=== PATIENT | male | born 1940 | race Caucasian/White ===

== ENCOUNTER → 2017-03-26 | Outpatient (CLI) | payer MEDICARE, OTHER ==
--- NOTE | 2017-03-26 14:43 | REP ---
Chest two views HISTORY: COPD Comparison: 07/31/2016 The lungs are clear. The heart is normal in size. The pulmonary vasculature is normal in appearance. There is an old compression fracture of the T12 vertebral body with mild height loss. IMPRESSION: No acute disease. Signed by Isidoro Matute MD 03/26/2017 02:34 P
--- NOTE | 2017-03-26 15:21 | REP ---
SINUSES, FIVE VIEWS: HISTORY: COPD. Minimal mucosal thickening is present in the right maxillary sinus. The remaining sinuses are clear. There is no fracture or bone lesion. IMPRESSION: Minimal right maxillary sinus mucosal thickening. Signed by Isidoro Matute MD 03/26/2017 03:24 P
== END ==
LOC: M RAD 14:05
PROVIDERS: ATTEND Family Medicine
DX: J32.9 Chronic sinusitis, unspecified (principal); J44.9 Chronic obstructive pulmonary disease, unspecified

== ENCOUNTER → 2017-09-25 | Outpatient (CLI) | payer MEDICARE, OTHER ==
[2017-09-25 13:03] LABS: MEAN CORPUSCULAR HEMOGLOBIN 30.8 pg (27.0-33.0); MEAN CORPUSCULAR HGB CONC 32.4 g/dl (32.0-36.5); MEAN CORPUSCULAR VOLUME 94.8 fl (80.0-96.0); PLATELET COUNT, AUTOMATED 276 10^3/uL (150-450)
[2017-09-25 13:50] LABS: ALBUMIN 3.5 GM/DL (3.2-5.2); ALBUMIN/GLOBULIN RATIO 1.09 (1.00-1.93); ALKALINE PHOSPHATASE 92 U/L (45-117); ALT/SGPT 18 U/L (12-78); ANION GAP 8 MEQ/L (8-16); AST/SGOT 15 U/L (7-37); BILIRUBIN,TOTAL 0.6 MG/DL (0.2-1.0); BLOOD UREA NITROGEN 13 MG/DL (7-18); CALCIUM LEVEL 8.8 MG/DL (8.8-10.2); CARBON DIOXIDE LEVEL 29 MEQ/L (21-32); CHLORIDE LEVEL 106 MEQ/L (98-107); CHOLESTEROL LEVEL 215 MG/DL (<200); CREATININE FOR GFR 0.75 MG/DL (0.70-1.30); GLOMERULAR FILTRATION RATE > 60.0 (>42); GLUCOSE, FASTING 95 MG/DL (83-110); POTASSIUM SERUM 4.1 MEQ/L (3.5-5.1); SODIUM LEVEL 143 MEQ/L (136-145); TOTAL PROTEIN 6.7 GM/DL (6.4-8.2); TRIGLYCERIDES LEVEL 132 MG/DL (<150)
--- NOTE | 2017-09-25 15:20 | REP ---
Chest two views HISTORY: COPD Comparison: 03/26/2017 The lungs are clear. The heart is normal in size. The pulmonary vasculature is normal in appearance. There is an old compression fracture of the T12 vertebral body. IMPRESSION: No acute disease. Signed by Isidoro Matute MD 09/25/2017 03:11 P
--- NOTE | 2017-09-25 16:58 | ECGEPIP ---
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 No 1st degree AV block compared with 07/31/2016. Electronically Signed On 09-25-2017 16:57:49 EST by Ray Mayes
== END ==
LOC: M LAB 12:38
PROVIDERS: ATTEND Family Medicine
DX: J44.9 Chronic obstructive pulmonary disease, unspecified (principal); R53.83 Other fatigue; N40.0 Benign prostatic hyperplasia without lower urinary tract symptoms; Z79.899 Other long term (current) drug therapy

== ENCOUNTER → 2018-07-06 | Outpatient (REF) | payer MEDICARE, OTHER | LOC: M LAB REF 17:36 | DX: B07.9 Viral wart, unspecified (principal) | CPT/HCPCS: 88305 ==

== ENCOUNTER → 2018-09-02 | Outpatient (CLI) | payer MEDICARE, OTHER | LOC: M RAD 13:39 | DX: I65.23 Occlusion and stenosis of bilateral carotid arteries (principal) | CPT/HCPCS: 93880 ==

== ENCOUNTER → 2018-11-25 | Outpatient (CLI) | payer MEDICARE, OTHER ==
--- NOTE | 2018-11-25 12:48 | REP ---
Chest two views HISTORY: COPD Comparison: 09/25/2017 The lungs are clear. The heart is normal in size. The pulmonary vasculature is normal in appearance. There is an old compression fracture of the T12 vertebral body. IMPRESSION: No acute disease. Electronically Signed by Isidoro Matute MD 11/25/2018 12:40 P
[2018-11-25 13:00] LABS: HEMATOCRIT 43.1 % (42.0-52.0); HEMOGLOBIN 14.1 g/dl (13.5-17.5); MEAN CORPUSCULAR HEMOGLOBIN 31.7 pg (27.0-33.0); MEAN CORPUSCULAR HGB CONC 32.7 g/dl (32.0-36.5); MEAN CORPUSCULAR VOLUME 96.9 fl (80.0-96.0); PLATELET COUNT, AUTOMATED 221 10^3/uL (150-450); RED BLOOD COUNT 4.45 10^6/uL (4.30-6.10); WHITE BLOOD COUNT 6.1 10^3/uL (4.0-10.0)
[2018-11-25 13:29] LABS: ALBUMIN 3.6 GM/DL (3.2-5.2); ALT/SGPT 29 U/L (12-78); BILIRUBIN,TOTAL 0.4 MG/DL (0.2-1.0); BLOOD UREA NITROGEN 17 MG/DL (7-18); CALCIUM LEVEL 8.6 MG/DL (8.8-10.2); CARBON DIOXIDE LEVEL 29 MEQ/L (21-32); CHLORIDE LEVEL 104 MEQ/L (98-107); CHOLESTEROL LEVEL 211 MG/DL (<200); GLOMERULAR FILTRATION RATE > 60.0 (>42); GLUCOSE, FASTING 89 MG/DL (70-100); HDL CHOLESTEROL 50 MG/DL (>40); LDL CHOLESTEROL 141 MG/DL (<100); NON-HDL-C 161 MG/DL; POTASSIUM SERUM 4.5 MEQ/L (3.5-5.1); PROSTATIC SPECIFIC AG MONITOR 0.38 NG/ML (< 4.00); SODIUM LEVEL 139 MEQ/L (136-145); TESTOSTERONE 500 NG/DL (241-827); TOTAL PROTEIN 6.5 GM/DL (6.4-8.2); TRIGLYCERIDES LEVEL 100 MG/DL (<150)
--- NOTE | 2018-11-26 08:39 | ECGEPIP ---
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
== END ==
LOC: M LAB 11:42
PROVIDERS: ATTEND Family Medicine
DX: J44.9 Chronic obstructive pulmonary disease, unspecified (principal); R53.83 Other fatigue; E03.9 Hypothyroidism, unspecified

== ENCOUNTER → 2019-02-17 | Outpatient (CLI) | payer MEDICARE, OTHER ==
--- NOTE | 2019-02-17 19:22 | REP ---
HISTORY: Followup. Less than 50% stenosis of the right internal carotid artery and 60to 79% stenosis of the left internal carotid artery. Once again, there is echogenic material seen along the carotid arterial castillo which appears to be essentially unchanged from the prior exam. Right Left CCA systolic 84.5 cm/s 65.0 cm/s CCA diastolic 9.8 cm/s 15.3 cm/s ICA systolic 67.7 cm/s 123.1 cm/s ICA diastolic 19.8 cm/s 30.5 cm/s ICA/CCA ratio 0.8 1.9 Analysis of the spectral tracings shows left internal carotid arterial spectral broadening. IMPRESSION: No significant change from the prior exam. 60 to 79% stenosis of the left internal carotid artery and less than 50% stenosis of the right internal carotid artery according to the NASCET consensus criteria. Electronically Signed by Modesto Cruz DO 02/17/2019 07:54 P
== END ==
LOC: M RAD 17:18
PROVIDERS: ATTEND Surgery Vascular Surgery
DX: I65.23 Occlusion and stenosis of bilateral carotid arteries (principal)

== ENCOUNTER 2019-09-21 10:21 | Day surgery (SDC) | payer MEDICARE, OTHER ==
[~2019-09-21] VITALS: Ht 177.8 cm; Wt 78.0 kg
[~2019-09-21 10:21] MED LIST: DOXA1TAB42 PO; DUTA1CAP PO; SIMV20TA22 PO
[2019-09-21] MEDS ORDERED: NS 1,000 ML IV ONE (10:45)
[2019-09-21] MEDS ORDERED: LIDOCAINE 2% INJ 100 MG/5 ML SDV (FOR ANES.) As Ordered ONE (11:01)
[2019-09-21] MEDS ORDERED: PROPOFOL 200 MG/20 ML VIAL As Ordered ONE (11:01)
[2019-09-21] MEDS ORDERED: hydrALAZINE INJ 20 MG/ML VIAL As Ordered ONE (11:44)
--- NOTE | 2019-09-21 11:53 | ROOR ---
Patient Name: Cody Quinn Procedure Date: 09/21/2019 11:28 AM Date of : 1940 Age: 78 Room: [facility] Gender: Male Note Status: Finalized Procedure: Total Colonoscopy to Cecum + Cold Snare Polypectomy Indications: Screening for colorectal malignant neoplasm, Last colonoscopy: 2008 Providers: Alex Pierce MD Referring MD: SANDOVAL PETTY MD Requesting Provider: Medicines: Monitored Anesthesia Care Complications: No immediate complications. Procedure: Pre-Anesthesia Assessment: - The heart rate, respiratory rate, oxygen saturations, blood pressure, adequacy of pulmonary ventilation, and response to care were monitored throughout the procedure. The Colonoscope was introduced through the anus and advanced to the cecum, identified by appendiceal orifice and ileocecal valve. The colonoscopy was performed without difficulty. The patient tolerated the procedure well. The quality of the bowel preparation was excellent. Findings: The perianal and digital rectal examinations were normal. Non-bleeding internal hemorrhoids were found during retroflexion. The hemorrhoids were small and Grade I (internal hemorrhoids that do not prolapse). Multiple small and large-mouthed diverticula were found in the recto-sigmoid colon, sigmoid colon and descending colon. Two sessile polyps were found in the transverse colon. The polyps were small in size. These polyps were removed with a cold snare. Resection and retrieval were complete. The exam was otherwise without abnormality on direct and retroflexion views. Impression: - Non-bleeding internal hemorrhoids. - Diverticulosis in the recto-sigmoid colon, in the sigmoid colon and in the descending colon. - Two small polyps in the transverse colon, removed with a cold snare. Resected and retrieved. - The examination was otherwise normal on direct and retroflexion views. - The exam was otherwise normal to the cecum. Recommendation: - Patient has a contact number available for emergencies. The signs and symptoms of potential delayed complications were discussed with the patient. Return to normal activities tomorrow. Written discharge instructions were provided to the patient. - High fiber diet. - Discharge patient to home. - Continue present medications. - Await pathology results. - Telephone GI clinic for pathology results in 1 week. - Repeat colonoscopy for symptoms only. - Return to referring physician. - The findings and recommendations were discussed with the patient's family. Alex Pierce MD Alex Pierce MD 09/21/2019 11:53:06 AM Electronically signed by Alex Pierce MD Number of Addenda: 0 Note Initiated On: 09/21/2019 11:28 AM Estimated Blood Loss: Estimated blood loss: none.
[2019-09-21 12:15] VITALS: BP 144/83
== END 2019-09-21 12:28 | disposition home or self-care (01) ==
LOC: M OPP 10:21
PROVIDERS: ATTEND Internal Medicine Gastroenterology
DX: Z12.11 Encounter for screening for malignant neoplasm of colon (principal); K64.0 First degree hemorrhoids; D12.3 Benign neoplasm of transverse colon; K57.30 Diverticulosis of large intestine without perforation or abscess without bleeding; Z79.899 Other long term (current) drug therapy; Z87.891 Personal history of nicotine dependence

== ENCOUNTER → 2019-09-28 | Outpatient (CLI) | payer MEDICARE, OTHER ==
[2019-09-28 11:07] LABS: HEMATOCRIT 41.9 % (42.0-52.0); HEMOGLOBIN 13.4 g/dl (13.5-17.5); MEAN CORPUSCULAR HEMOGLOBIN 31.5 pg (27.0-33.0); MEAN CORPUSCULAR VOLUME 98.6 fl (80.0-96.0); RED BLOOD COUNT 4.25 10^6/uL (4.30-6.10); WHITE BLOOD COUNT 6.1 10^3/uL (4.0-10.0)
[2019-09-28 11:26] LABS: PLATELET COUNT, AUTOMATED 87 10^3/uL (150-450)
[2019-09-28 11:37] LABS: ALBUMIN 3.3 GM/DL (3.2-5.2); ALT/SGPT 22 U/L (12-78); BILIRUBIN,TOTAL 0.4 MG/DL (0.2-1.0); BLOOD UREA NITROGEN 25 MG/DL (7-18); CALCIUM LEVEL 8.3 MG/DL (8.8-10.2); CARBON DIOXIDE LEVEL 30 MEQ/L (21-32); CHLORIDE LEVEL 110 MEQ/L (98-107); CHOLESTEROL LEVEL 173 MG/DL (<200); CHOLESTEROL RISK RATIO 3.203 (<5); CREATININE FOR GFR 1.06 MG/DL (0.70-1.30); GLOMERULAR FILTRATION RATE > 60.0 (>42); GLUCOSE, FASTING 89 MG/DL (70-100); HDL CHOLESTEROL 54 MG/DL (>40); LDL CHOLESTEROL 105 MG/DL (<100); NON-HDL-C 119 MG/DL; POTASSIUM SERUM 4.3 MEQ/L (3.5-5.1); SODIUM LEVEL 143 MEQ/L (136-145); TOTAL PROTEIN 6.6 GM/DL (6.4-8.2); TRIGLYCERIDES LEVEL 70 MG/DL (<150)
[2019-09-28 11:39] LABS: TESTOSTERONE 499 NG/DL (241-827); TOTAL 25(OH) VITAMIN D 42.3 NG/ML (30.0-100.0)
== END ==
LOC: M LAB 10:30
PROVIDERS: ATTEND Family Medicine
DX: I10 Essential (primary) hypertension (principal); E03.9 Hypothyroidism, unspecified; N40.0 Benign prostatic hyperplasia without lower urinary tract symptoms; E29.1 Testicular hypofunction; Z79.899 Other long term (current) drug therapy
CPT/HCPCS: 36415; 80053; 80061; 82306; 84403; 84443; 85027; 85049; 85055; G0103

== ENCOUNTER → 2019-10-25 | Outpatient (CLI) | payer MEDICARE, OTHER ==
--- NOTE | 2019-10-25 12:00 | REP ---
DUPLEX CAROTID SONOGRAPHY: HISTORY: Stenosis. Comparison is made with February 17, 2019 prior study. FINDINGS: Antegrade flow was observed in both vertebral arteries. RIGHT CAROTID: The right common carotid artery shows diffuse intimal thickening. There is mild soft plaquing in the bulb and proximal ICA on the right side. Color flow and spectral Doppler interrogation are unremarkable on the right and velocities are unchanged. Right Carotid Velocity Chart: PSV EDV Right CCA 64 cm/s Right ICA 72 cm/s 25 cm/s Right ECA 75 cm/s Right ICA/CCA ratio normal 1.1. IMPRESSION: Less than 50% category narrowing in the right ICA. Velocities are unchanged. LEFT CAROTID: The left common carotid artery shows diffuse intimal thickening and some soft plaquing. There is moderate mixed plaquing in the bulb and proximal ICA and proximal ECA on the left side on two-dimensional scanning. Significantly elevated systolic velocity is again observed in the external carotid artery on the left. Normal ICA velocities are observed. Velocity Chart Left Carotid: PSV EDV Left CCA 82 cm/s Left ICA 97 cm/s 32 cm/s Left ECA 322 cm/s Left ICA/CCA ratio 1.22. IMPRESSION: Significant stenotic flow velocities are again observed in the external carotid artery unchanged. Less of 50% category narrowing in the ICA. Electronically Signed by Leon Cesar MD 10/25/2019 01:10 P
== END ==
LOC: M RAD 10:43
PROVIDERS: ATTEND Physician Assistant
DX: I65.23 Occlusion and stenosis of bilateral carotid arteries (principal)

== ENCOUNTER → 2019-12-27 | Outpatient (CLI) | payer MEDICARE, OTHER ==
[~2019-12-27] MED LIST changes: +ASPI81TA85 PO; +DEXA4TA PO; -DUTA1CAP PO; +DUTA1CAP2 PO; +FISH1000 PO; +OCUVTAB4 PO; +ODOR100T3 PO
--- NOTE | 2019-12-27 09:52 | REP ---
Splenic ultrasound in a patient with thrombocytopenia for splenomegaly: The spleen measures 8.5 x 2.5 x 7.4 cm for a splenic index of 157 and is normal size. There are no splenic masses or cysts. Left kidney: Left kidney measures 11.6 x 420 x 6 point centimeters and is normal size. The left renal cortex is hyperechogenic. This is compatible with medical renal disease. There is mild dilatation of the left renal pelvis, nonspecific, mild hydronephrosis versus artifact. There is increased renal sinus fat compatible with mild cortical thinning. There is no left upper quadrant abdominal ascites. Impression: The spleen is normal size. No splenic masses or cysts. Left kidney demonstrates increased cortical echogenicity compatible with medical renal disease. Probable mild left renal cortical thinning. No left renal solid or cystic mass on the right. Questionable mild left renal hydronephrosis versus artifact, possibly from a full bladder. Electronically Signed by Josh Farris MD 12/27/2019 09:43 A
== END ==
LOC: M RAD 07:50
PROVIDERS: ATTEND Internal Medicine Medical Oncology
DX: D69.6 Thrombocytopenia, unspecified (principal)

== ENCOUNTER 2020-02-01 09:54 | Emergency (ER) | payer MEDICARE, OTHER ==
[~2020-02-01] VITALS: Ht 177.8 cm; Wt 79.4 kg
[~2020-02-01 09:54] MED LIST changes: +HYDR12.55 PO
[2020-02-01 09:55] VITALS: BP 160/80
[2020-02-01] MEDS ORDERED: BACITRACIN OINTMENT 30GM TUBE TOP ONE (10:15)
== END 2020-02-01 10:41 | disposition home or self-care (01) ==
LOC: M ED 09:54
DX: S50.812A Abrasion of left forearm, initial encounter (principal); W54.8XXA Other contact with dog, initial encounter; Y92.018 Other place in single-family (private) house as the place of occurrence of the external cause; I10 Essential (primary) hypertension; Z79.899 Other long term (current) drug therapy

== ENCOUNTER → 2020-03-02 | Outpatient (CLI) | payer MEDICARE, OTHER ==
--- NOTE | 2020-03-02 14:49 | REP ---
Bilateral lower extremity arterial Doppler ultrasound: History: Atherosclerosis. No comparison study. Findings: Ankle brachial indices are measured at 0.5 on the right and 0.7 on the left. There is fairly heavy diffuse plaquing is seen. Monophasic waveforms are noted in the right lower extremity at and distal to the mid superficial femoral artery and monophasic waveforms are noted in the left lower extremity at and distal to the distal superficial femoral artery. There is evidence of a mild stenosis at the mid SFA on the right. The left proximal and mid SFA are occluded. Right lower extremity arterial Doppler velocity chart: Right CF A PSV 166 cm/S Proximal SFA 42 Mid SFA 95 Distal SFA 124 Popliteal 51 Proximal AT A 24 Tibioperoneal trunk 52 Proximal COUNSELOR AID 50 Distal COUNSELOR AID 58 Distal AT A 27 Left lower extremity arterial Doppler velocity chart: Left CF A PSV 127 cm/S Profunda 180 Proximal SFA occluded Mid SFA occluded Distal SFA 91/94 Popliteal 70 eight Proximal AT A 83 Tibioperoneal trunk 72 Proximal COUNSELOR AID 76 Distal COUNSELOR AID 34 Distal AT A 60 Electronically Signed by Leon Cesar MD 03/02/2020 02:40 P
== END ==
LOC: M RAD 12:34
PROVIDERS: ATTEND Physician Assistant
DX: I70.213 Atherosclerosis of native arteries of extremities with intermittent claudication, bilateral legs (principal)

== ENCOUNTER → 2020-03-13 | Outpatient (CLI) | payer MEDICARE, OTHER ==
[2020-03-13 15:53] LABS: BASO # 0.1 10^3/uL (0.0-0.2); BASO % 1.1 % (0.0-1.0); EOS # 0.1 10^3/uL (0.0-0.5); EOS % 1.7 % (0.0-3.0); HEMATOCRIT 39.4 % (42.0-52.0); HEMOGLOBIN 12.8 g/dl (13.5-17.5); LYMPH # 1.1 10^3/uL (1.5-5.0); LYMPH % 17.1 % (24.0-44.0); MEAN CORPUSCULAR HEMOGLOBIN 30.5 pg (27.0-33.0); MEAN CORPUSCULAR HGB CONC 32.5 g/dl (32.0-36.5); MONO # 0.9 10^3/uL (0.0-0.8); MONO % 13.6 % (0.0-5.0); NEUTROPHILS # 4.3 10^3/uL (1.5-8.5); NEUTROPHILS % 66.2 % (36.0-66.0); RED BLOOD COUNT 4.19 10^6/uL (4.30-6.10); WHITE BLOOD COUNT 6.5 10^3/uL (4.0-10.0)
[2020-03-13 15:55] LABS: PLATELET COUNT, AUTOMATED 42 10^3/uL (150-450)
== END ==
LOC: M PLALAB 14:04
PROVIDERS: ATTEND Internal Medicine Medical Oncology
DX: D69.3 Immune thrombocytopenic purpura (principal)

== ENCOUNTER → 2020-04-16 | Outpatient (CLI) | payer MEDICARE, OTHER ==
[~2020-04-16] MED LIST changes: +VITAD1000T PO
[2020-04-16 16:03] LABS: BASO # 0.1 10^3/uL (0.0-0.2); EOS # 0.1 10^3/uL (0.0-0.5); EOS % 1.9 % (0.0-3.0); HEMATOCRIT 43.1 % (42.0-52.0); HEMOGLOBIN 13.9 g/dl (13.5-17.5); LYMPH # 1.1 10^3/uL (1.5-5.0); LYMPH % 18.5 % (24.0-44.0); MEAN CORPUSCULAR HGB CONC 32.3 g/dl (32.0-36.5); MEAN CORPUSCULAR VOLUME 96.2 fl (80.0-96.0); MONO # 0.8 10^3/uL (0.0-0.8); MONO % 13.6 % (0.0-5.0); NEUTROPHILS # 3.7 10^3/uL (1.5-8.5); NEUTROPHILS % 64.7 % (36.0-66.0); RED BLOOD COUNT 4.48 10^6/uL (4.30-6.10); WHITE BLOOD COUNT 5.7 10^3/uL (4.0-10.0)
[2020-04-16 16:13] LABS: PLATELET COUNT, AUTOMATED 45 10^3/uL (150-450)
== END ==
LOC: M PLALAB 13:16
PROVIDERS: ATTEND Internal Medicine Medical Oncology
DX: D69.3 Immune thrombocytopenic purpura (principal)

== ENCOUNTER → 2020-04-19 | Outpatient (CLI) | payer MEDICARE, OTHER ==
--- NOTE | 2020-04-19 13:39 | REP ---
Clinical: History of stenosis and right endarterectomy. Technique: Momin scale and color Doppler evaluation using linear high frequency transducer Findings: Two-dimensional momin scale and color images demonstrate moderate mixed atheromatous plaquing bilaterally (left greater than right). Turbulent flow suggested at the left carotid bulb. Doppler wave patterns demonstrate increased spectral broadening of the left internal and external carotid arteries. RIGHT (cm/s) LEFT (cm/s) ICA peak systolic velocity 84.1 126.6 ICA diastolic velocity 28.3 16.7 ECA peak systolic velocity 70.2 348.7 CCA peak systolic velocity 71.5 58.4 ICA/CCA ratio 1.18 2.17 Impression: 1. Increased velocities through the left external iliac artery suggesting underlying stenosis. 2. Atherosclerotic changes and increased velocities along with increased ICA/cc ratio suggesting 50-69% narrowing through the left internal carotid artery. 3. Narrowing of the right internal carotid artery less than 50% range. Electronically Signed by Jay Jay Monreal MD 04/19/2020 01:31 P
== END ==
LOC: M RAD 12:07
PROVIDERS: ATTEND Physician Assistant
DX: I65.23 Occlusion and stenosis of bilateral carotid arteries (principal)

== ENCOUNTER → 2020-06-08 | Outpatient (CLI) | payer MEDICARE, OTHER ==
[~2020-06-08] MED LIST changes: +AMLO1TAB25; -ASPI81TA85 PO; +ASPI81TA86 PO; +D31000TA2 PO; +DOXA1TAB41; +HYDR100T; +LABE300T2; -VITAD1000T PO
[2020-06-08 16:36] LABS: BASO # 0.1 10^3/uL (0.0-0.2); BASO % 1.1 % (0.0-1.0); EOS # 0.2 10^3/uL (0.0-0.5); HEMATOCRIT 42.5 % (42.0-52.0); HEMOGLOBIN 13.6 g/dl (13.5-17.5); LYMPH # 1.1 10^3/uL (1.5-5.0); LYMPH % 19.7 % (24.0-44.0); MEAN CORPUSCULAR HEMOGLOBIN 30.7 pg (27.0-33.0); MEAN CORPUSCULAR VOLUME 95.9 fl (80.0-96.0); MONO # 0.6 10^3/uL (0.0-0.8); MONO % 10.9 % (0.0-5.0); NEUTROPHILS # 3.5 10^3/uL (1.5-8.5); NEUTROPHILS % 65.1 % (36.0-66.0); RED BLOOD COUNT 4.43 10^6/uL (4.30-6.10); WHITE BLOOD COUNT 5.3 10^3/uL (4.0-10.0)
[2020-06-08 16:53] LABS: PLATELET COUNT, AUTOMATED 51 10^3/uL (150-450)
== END ==
LOC: M PLALAB 13:15
PROVIDERS: ATTEND Specialist
DX: D69.3 Immune thrombocytopenic purpura (principal)

== ENCOUNTER → 2020-06-18 | Outpatient (CLI) | payer MEDICARE, OTHER ==
[2020-06-18 14:23] LABS: BASO # 0.1 10^3/uL (0.0-0.2); EOS # 0.2 10^3/uL (0.0-0.5); EOS % 3.2 % (0.0-3.0); HEMATOCRIT 42.6 % (42.0-52.0); HEMOGLOBIN 13.7 g/dl (13.5-17.5); LYMPH # 1.8 10^3/uL (1.5-5.0); LYMPH % 30.2 % (24.0-44.0); MEAN CORPUSCULAR HEMOGLOBIN 30.2 pg (27.0-33.0); MEAN CORPUSCULAR HGB CONC 32.2 g/dl (32.0-36.5); MONO # 0.6 10^3/uL (0.0-0.8); MONO % 9.1 % (0.0-5.0); NEUTROPHILS # 3.4 10^3/uL (1.5-8.5); NEUTROPHILS % 56.3 % (36.0-66.0); RED BLOOD COUNT 4.53 10^6/uL (4.30-6.10)
[2020-06-18 14:26] LABS: PLATELET COUNT, AUTOMATED 67 10^3/uL (150-450)
== END ==
LOC: M PLALAB 12:32
PROVIDERS: ATTEND Specialist
DX: D69.3 Immune thrombocytopenic purpura (principal)

== ENCOUNTER → 2020-06-29 | Outpatient (CLI) | payer MEDICARE, OTHER ==
[2020-06-29 15:58] LABS: BASO # 0.1 10^3/uL (0.0-0.2); BASO % 1.3 % (0.0-1.0); EOS # 0.1 10^3/uL (0.0-0.5); EOS % 2.2 % (0.0-3.0); HEMATOCRIT 42.9 % (42.0-52.0); HEMOGLOBIN 13.8 g/dl (13.5-17.5); LYMPH # 1.4 10^3/uL (1.5-5.0); LYMPH % 24.9 % (24.0-44.0); MEAN CORPUSCULAR HGB CONC 32.2 g/dl (32.0-36.5); MEAN CORPUSCULAR VOLUME 96.4 fl (80.0-96.0); MONO # 0.6 10^3/uL (0.0-0.8); MONO % 10.1 % (0.0-5.0); NEUTROPHILS # 3.4 10^3/uL (1.5-8.5); NEUTROPHILS % 61.3 % (36.0-66.0); RED BLOOD COUNT 4.45 10^6/uL (4.30-6.10); WHITE BLOOD COUNT 5.5 10^3/uL (4.0-10.0)
[2020-06-29 16:00] LABS: PLATELET COUNT, AUTOMATED 74 10^3/uL (150-450)
== END ==
LOC: M PLALAB 12:42
PROVIDERS: ATTEND Specialist
DX: D69.3 Immune thrombocytopenic purpura (principal)

== ENCOUNTER → 2020-08-01 | Outpatient (CLI) | payer MEDICARE, OTHER ==
[~2020-08-01] MED LIST changes: -AMLO1TAB25; -DOXA1TAB41; -HYDR100T; -LABE300T2
[2020-08-01 16:20] LABS: BASO # 0.1 10^3/uL (0.0-0.2); BASO % 1.7 % (0.0-1.0); EOS # 0.2 10^3/uL (0.0-0.5); HEMATOCRIT 42.1 % (42.0-52.0); HEMOGLOBIN 13.4 g/dl (13.5-17.5); LYMPH # 1.4 10^3/uL (1.5-5.0); LYMPH % 26.4 % (24.0-44.0); MEAN CORPUSCULAR HEMOGLOBIN 30.6 pg (27.0-33.0); MEAN CORPUSCULAR HGB CONC 31.8 g/dl (32.0-36.5); MEAN CORPUSCULAR VOLUME 96.1 fl (80.0-96.0); MONO # 0.6 10^3/uL (0.0-0.8); MONO % 10.6 % (0.0-5.0); NEUTROPHILS # 3.1 10^3/uL (1.5-8.5); NEUTROPHILS % 58.1 % (36.0-66.0); RED BLOOD COUNT 4.38 10^6/uL (4.30-6.10); WHITE BLOOD COUNT 5.3 10^3/uL (4.0-10.0)
[2020-08-01 16:21] LABS: PLATELET COUNT, AUTOMATED 51 10^3/uL (150-450)
[2020-08-01 16:52] LABS: IMMUNOGLOBULIN G 629 MG/DL (681-1648); IMMUNOGLOBULIN M 42.8 MG/DL (40-230); TOTAL PROTEIN 5.8 GM/DL (6.4-8.2)
[2020-08-03 09:58] LABS: ALPHA-1-GLOBULIN % 4.6 % (2.9-4.9); ALPHA-1-GLOBULINS 0.27 GM/DL (0.17-0.41); ALPHA-2-GLOBULINS 0.59 GM/DL (0.42-0.99); ALPHA-2-GLOBULINS % 10.1 % (7.1-11.8); BETA-1-GLOBULINS 0.37 GM/DL (0.28-0.60); BETA-1-GLOBULINS % 6.3 % (4.7-7.2); BETA-2-GLOBULINS 0.32 GM/DL (0.19-0.55); BETA-2-GLOBULINS % 5.5 % (3.2-6.5); GAMMA GLOBULIN % 11.5 % (11.1-18.8); GAMMA GLOBULINS 0.67 GM/DL (0.65-1.58)
[2020-08-04 04:07] LABS: FREE KAPPA LIGHT CHAINS SERUM 16.2 mg/L (3.3-19.4); KAPPA/LAMBDA RATIO SERUM 1.25 (0.26-1.65)
== END ==
LOC: M PLALAB 13:00
PROVIDERS: ATTEND Internal Medicine Medical Oncology
DX: D69.3 Immune thrombocytopenic purpura (principal)

== ENCOUNTER → 2020-08-10 | Outpatient (CLI) | payer MEDICARE, OTHER ==
[2020-08-10 17:27] LABS: ALBUMIN 3.3 GM/DL (3.2-5.2); ALT/SGPT 21 U/L (12-78); BILIRUBIN,TOTAL 0.4 MG/DL (0.2-1.0); BLOOD UREA NITROGEN 19 MG/DL (7-18); CALCIUM LEVEL 8.6 MG/DL (8.8-10.2); CARBON DIOXIDE LEVEL 26 MEQ/L (21-32); CHLORIDE LEVEL 111 MEQ/L (98-107); CHOLESTEROL LEVEL 198 MG/DL (<200); CHOLESTEROL RISK RATIO 4.212 (<5); CREATININE FOR GFR 0.99 MG/DL (0.70-1.30); GLOMERULAR FILTRATION RATE > 60.0 (>42); GLUCOSE, FASTING 82 MG/DL (70-100); HDL CHOLESTEROL 47 MG/DL (>40); LDL CHOLESTEROL 122 MG/DL (<100); NON-HDL-C 151 MG/DL; POTASSIUM SERUM 4.1 MEQ/L (3.5-5.1); PROSTATIC SPECIFIC AG MONITOR 0.62 NG/ML (< 4.00); SODIUM LEVEL 143 MEQ/L (136-145); TESTOSTERONE 554 NG/DL (241-827); TOTAL PROTEIN 6.1 GM/DL (6.4-8.2); TRIGLYCERIDES LEVEL 143 MG/DL (<150)
== END ==
LOC: M PLALAB 13:35
PROVIDERS: ATTEND Family Medicine
DX: I10 Essential (primary) hypertension (principal); R53.83 Other fatigue; E03.9 Hypothyroidism, unspecified; R97.20 Elevated prostate specific antigen [PSA]

== ENCOUNTER 2020-08-17 17:59 | Emergency (ER) | payer MEDICARE, OTHER ==
[~2020-08-17] VITALS: Ht 177.8 cm; Wt 80.1 kg
--- NOTE | 2020-08-17 18:29 | REP ---
INDICATION: CHEST PAIN. COMPARISON: None. TECHNIQUE: Sitting AP view. FINDINGS: Monitoring electrodes are seen. The lungs are well inflated and free of infiltrate. Pleural angles are sharp. The aorta is tortuous. Heart is not enlarged. Pulmonary vasculature is not increased. IMPRESSION: No active cardiopulmonary disease seen. <Electronically signed by Dean Cesar > 08/17/20 [id number]
[2020-08-17] MEDS ORDERED: ASPIRIN 325 MG TAB PO ONE (18:30)
[2020-08-17] MEDS ORDERED: GI COCKTAIL 50ML BTL(HYOSCYAMINE/MAALOX/LIDOCAINE VISCOUS)(1:3:1) PO ONE (18:30)
[2020-08-17] MEDS ORDERED: ISOVUE-370 76% 100ML VIAL As Ordered ONE (18:30)
[2020-08-17 18:34] LABS: BASO # 0.1 10^3/uL (0.0-0.2); BASO % 0.8 % (0.0-1.0); EOS # 0.1 10^3/uL (0.0-0.5); EOS % 1.6 % (0.0-3.0); HEMATOCRIT 43.1 % (42.0-52.0); HEMOGLOBIN 13.7 g/dl (13.5-17.5); LYMPH % 24.7 % (24.0-44.0); MEAN CORPUSCULAR HEMOGLOBIN 30.6 pg (27.0-33.0); MEAN CORPUSCULAR HGB CONC 31.8 g/dl (32.0-36.5); MEAN CORPUSCULAR VOLUME 96.2 fl (80.0-96.0); MONO # 0.8 10^3/uL (0.0-0.8); MONO % 9.9 % (0.0-5.0); NEUTROPHILS % 62.7 % (36.0-66.0); RED BLOOD COUNT 4.48 10^6/uL (4.30-6.10)
[2020-08-17 18:43] LABS: PLATELET COUNT, AUTOMATED 73 10^3/uL (150-450)
[2020-08-17 18:45] LABS: INR 0.98; PARTIAL THROMBOPLASTIN TIME 25.8 SECONDS (24.2-38.5); PROTHROMBIN TIME 13.2 SECONDS (12.5-14.3)
[2020-08-17] MEDS ORDERED: MORPHINE 4 MG/ML 1ML VIAL/SYRINGE (J2270) As Ordered ONE (18:45)
[2020-08-17] MEDS ORDERED: ONDANSETRON 4MG/2ML VIAL As Ordered ONE (18:45)
[2020-08-17] MEDS ORDERED: ONDANSETRON 4MG/2ML VIAL IV ONE (18:45)
[2020-08-17] MEDS: MORPHINE 4 MG/ML 1ML VIAL/SYRINGE (J2270) IV PRN ×2 (18:49→19:11)
--- NOTE | 2020-08-17 18:55 | REPVR ---
PROCEDURE INFORMATION: Exam: CT Angiography Chest With Contrast Exam date and time: 08/17/2020 6:33 PM Age: 79 years old Clinical indication: Chest pain; Additional info: Cp R/O aneurysm TECHNIQUE: Imaging protocol: Computed tomographic angiography of the chest with intravenous contrast. 3D rendering (Not supervised by radiologist): MIP and/or 3D reconstructed images were created by the technologist. Radiation optimization: All CT scans at this facility use at least one of these dose optimization techniques: automated exposure control; mA and/or kV adjustment per patient size (includes targeted exams where dose is matched to clinical indication); or iterative reconstruction. Contrast material: ISOVUE 370; Contrast volume: 75 ml; Contrast route: INTRAVENOUS (IV); COMPARISON: ND PORTABLE CHEST X-RAY 08/17/2020 6:18 PM FINDINGS: Pulmonary arteries: Contrast density in the pulmonary arteries not optimized for detection of pulmonary emboli although no large central pulmonary emboli demonstrated. 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 False lumens begins to opacify at the level of the distal aortic arch extending inferiorly to several cm proximal to the aortic hiatus. Lungs: Small reticular opacity posterior segment right upper lobe. A lungs otherwise clear. Pleural space: Unremarkable. No pneumothorax. No pleural effusion. Heart: Unremarkable. No cardiomegaly. No pericardial effusion. Lymph nodes: Unremarkable. No enlarged lymph nodes. Bones/joints: Unremarkable. No acute fracture. Soft tissues: Unremarkable. IMPRESSION: 1. DeBakey type 3 aortic dissection. 2. Contrast density in the pulmonary arteries not optimized for detection of pulmonary emboli although no large central pulmonary emboli demonstrated. 3. No significant pulmonary parenchymal abnormality. THIS REPORT CONTAINS FINDINGS THAT MAY BE CRITICAL TO PATIENT CARE. The findings were verbally communicated via telephone conference with MIGUELANGEL BUTLER at 6:54 PM EDT on 08/17/2020. The findings were acknowledged and understood. Electronically signed by: Chance Bowles On 08/17/2020 18:55:02 PM
[2020-08-17] MEDS ORDERED: NITROPRUSSIDE SODIUM 50 MG in IV 1 EA IV SCH (19:00)
[2020-08-17 19:03] LABS: ALBUMIN 3.6 GM/DL (3.2-5.2); BILIRUBIN,DIRECT 0.1 MG/DL (0.0-0.2); BILIRUBIN,TOTAL 0.4 MG/DL (0.2-1.0); FREE T4 0.91 NG/DL (0.76-1.46); THYROID STIMULATING HORMONE 1.48 uIU/ML (0.358-3.740); TOTAL PROTEIN 6.5 GM/DL (6.4-8.2)
[2020-08-17 19:10] VITALS: BP 250/100
[2020-08-17 19:45] VITALS: BP 122/76
--- NOTE | 2020-08-18 07:54 | ECGEPIP ---
[facility] - ED Test Date: 2020-08-17 Pat Name: ANABEL RANDALL Department: Room: - Gender: Male Pick Up: JRobbie : 1940 Requested By: Elaine Galvan Order Number: [id number] Reading MD: Tristan Galvez Measurements Intervals [place] Rate: 55 P: -4 MD: 225 QRS: -3 QRSD: 90 T: 74 QT: 441 QTc: 424 Interpretive Statements SINUS BRADYCARDIA WITH FIRST DEGREE AV BLOCK POOR R WAVE PROGRESSION NSTTW ABNORMALITY(S) SIMILAR TO 11/25/18 Electronically Signed on 08-18-2020 7:54:21 EDT by Tristan Galvez
== END 2020-08-17 19:46 | disposition short-term general hospital (02) ==
LOC: M ED 17:59
DX: I71.2 Thoracic aortic aneurysm, without rupture (principal); I71.01 Dissection of thoracic aorta; I10 Essential (primary) hypertension; E78.5 Hyperlipidemia, unspecified; Z79.899 Other long term (current) drug therapy
CPT/HCPCS: 71045; 71275; 80047; 80076; 83605; 83690; 84439; 84443; 84484; 85025; 85049; 85055; 85610; 85730; 86850; 86900; 86901; 93005; 93041; 94760; 96374; 96375; 99291; J2270; J2405; Q9967

== ENCOUNTER 2020-08-31 17:03 | Emergency (ER) | payer MEDICARE, OTHER ==
[~2020-08-31] VITALS: Ht 177.8 cm; Wt 77.3 kg
[2020-08-31 17:44] LABS: ABG BASE EXCESS -0.1 (-2.0-2.0); ABG HCO3 19.2 MEQ/L (22.0-26.0); ABG O2 SATURATION 98.2 % (95.0-99.0); ABG PARTIAL PRESSURE O2 92.6 mmHg (75.0-100.0); ABG STANDARD HCO3 24.5 MEQ/L (22.0-26.0); ABG TOTAL CO2 19.7 MEQ/L (23.0-31.0); ABG pH (ARTERIAL) 7.653 UNITS (7.350-7.450)
[2020-08-31 17:45] LABS: ABG PARTIAL PRESSURE CO2 17.7 mmHg (35.0-45.0)
[2020-08-31 18:11] LABS: BASO # 0.1 10^3/uL (0.0-0.2); BASO % 0.5 % (0.0-1.0); EOS # 0.4 10^3/uL (0.0-0.5); EOS % 3.3 % (0.0-3.0); HEMATOCRIT 28.5 % (42.0-52.0); HEMOGLOBIN 9.4 g/dl (13.5-17.5); LYMPH # 1.1 10^3/uL (1.5-5.0); LYMPH % 9.8 % (24.0-44.0); MEAN CORPUSCULAR HEMOGLOBIN 30.8 pg (27.0-33.0); MEAN CORPUSCULAR VOLUME 93.4 fl (80.0-96.0); MONO # 0.7 10^3/uL (0.0-0.8); MONO % 6.7 % (0.0-5.0); NEUTROPHILS # 8.5 10^3/uL (1.5-8.5); NEUTROPHILS % 77.9 % (36.0-66.0); PLATELET COUNT, AUTOMATED 387 10^3/uL (150-450); RED BLOOD COUNT 3.05 10^6/uL (4.30-6.10); WHITE BLOOD COUNT 10.9 10^3/uL (4.0-10.0)
[2020-08-31 18:42] LABS: ALBUMIN 2.5 GM/DL (3.2-5.2); ALT/SGPT 79 U/L (12-78); BILIRUBIN,DIRECT 0.2 MG/DL (0.0-0.2); BILIRUBIN,TOTAL 0.5 MG/DL (0.2-1.0); BLOOD UREA NITROGEN 34 MG/DL (7-18); CALCIUM LEVEL 8.7 MG/DL (8.8-10.2); CARBON DIOXIDE LEVEL 22 MEQ/L (21-32); CHLORIDE LEVEL 107 MEQ/L (98-107); CK-MB VALUE MASS < 1.0 NG/ML (<3.6); CPK CREATINE PHOSPHOKINASE 58 U/L (39-308); CREATININE FOR GFR 1.24 MG/DL (0.70-1.30); GLOMERULAR FILTRATION RATE > 60.0 (>42); GLUCOSE, FASTING 98 MG/DL (70-100); MB/CK RELATIVE INDEX 1.72 (< OR =4); NT-PRO BNP 1425 PG/ML (<450); POTASSIUM SERUM 4.5 MEQ/L (3.5-5.1); SODIUM LEVEL 139 MEQ/L (136-145); TOTAL PROTEIN 5.8 GM/DL (6.4-8.2); TROPONIN I 0.04 NG/ML (< 0.10)
--- NOTE | 2020-08-31 18:57 | REP ---
INDICATION: DYSPNEA/COUGH. COMPARISON: 08/17/2020 FINDINGS: The technique utilized in obtaining the radiograph has magnified the cardiac silhouette and accentuated the interstitial markings. The superior mediastinal structures are midline. The cardiac silhouette is unremarkable in size, shape, and position. The diaphragmatic surfaces of the lungs are regular, and the costophrenic angles are clear. The pulmonary mustafa are clear. The imaged osseous structures are intact. IMPRESSION: There is no acute cardiopulmonary disease. No significant change from the prior exam. <Electronically signed by Modesto Cruz > 08/31/20 [id number]
[2020-08-31] MEDS ORDERED: HYDR100T (19:05)
[2020-08-31] MEDS ORDERED: DOXA1TAB41 (19:08)
[2020-08-31] MEDS ORDERED: LABE300T2 (19:08)
[2020-08-31] MEDS ORDERED: AMLO1TAB25 (19:08)
--- NOTE | 2020-08-31 19:30 | ECGEPIP ---
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
[2020-08-31] MEDS ORDERED: LABETALOL 100MG/20ML VIAL IV STA (19:54)
[2020-08-31 20:09] VITALS: BP 170/77
[2020-08-31 21:31] VITALS: BP 163/73
== END 2020-08-31 21:37 | disposition short-term general hospital (02) ==
LOC: M ED 17:03
DX: R06.02 Shortness of breath (principal); D64.9 Anemia, unspecified; R94.31 Abnormal electrocardiogram [ECG] [EKG]; I10 Essential (primary) hypertension; I71.00 Dissection of unspecified site of aorta; G47.33 Obstructive sleep apnea (adult) (pediatric); N40.0 Benign prostatic hyperplasia without lower urinary tract symptoms; D69.3 Immune thrombocytopenic purpura; Z79.899 Other long term (current) drug therapy

== ENCOUNTER → 2020-09-10 | Outpatient (CLI) | payer MEDICARE, OTHER ==
[~2020-09-10] MED LIST changes: +AMLO1TAB25; +DOXA1TAB41; +HYDR100T; +LABE300T2
[2020-09-10 17:50] LABS: BASO # 0.1 10^3/uL (0.0-0.2); BASO % 1.1 % (0.0-1.0); EOS # 0.5 10^3/uL (0.0-0.5); HEMATOCRIT 29.9 % (42.0-52.0); HEMOGLOBIN 9.2 g/dl (13.5-17.5); LYMPH # 1.1 10^3/uL (1.5-5.0); LYMPH % 10.9 % (24.0-44.0); MEAN CORPUSCULAR HEMOGLOBIN 30.5 pg (27.0-33.0); MEAN CORPUSCULAR HGB CONC 30.8 g/dl (32.0-36.5); MONO % 9.8 % (0.0-5.0); NEUTROPHILS # 7.6 10^3/uL (1.5-8.5); NEUTROPHILS % 72.8 % (36.0-66.0); PLATELET COUNT, AUTOMATED 338 10^3/uL (150-450); RED BLOOD COUNT 3.02 10^6/uL (4.30-6.10); WHITE BLOOD COUNT 10.5 10^3/uL (4.0-10.0)
== END ==
LOC: M PLALAB 15:41
PROVIDERS: ATTEND Specialist
DX: Z79.899 Other long term (current) drug therapy (principal)

== ENCOUNTER → 2020-09-25 | Outpatient (REF) | payer MEDICARE, OTHER ==
[2020-09-25 15:58] LABS: HEMATOCRIT 30.5 % (42.0-52.0); HEMOGLOBIN 9.4 g/dl (13.5-17.5); MEAN CORPUSCULAR HEMOGLOBIN 29.8 pg (27.0-33.0); MEAN CORPUSCULAR HGB CONC 30.8 g/dl (32.0-36.5); MEAN CORPUSCULAR VOLUME 96.8 fl (80.0-96.0); PLATELET COUNT, AUTOMATED 227 10^3/uL (150-450); RED BLOOD COUNT 3.15 10^6/uL (4.30-6.10)
[2020-09-25 16:19] LABS: ALBUMIN 2.6 GM/DL (3.2-5.2); ALT/SGPT 24 U/L (12-78); BILIRUBIN,TOTAL 0.3 MG/DL (0.2-1.0); BLOOD UREA NITROGEN 27 MG/DL (7-18); CALCIUM LEVEL 8.7 MG/DL (8.8-10.2); CARBON DIOXIDE LEVEL 25 MEQ/L (21-32); CHLORIDE LEVEL 109 MEQ/L (98-107); CREATININE FOR GFR 0.99 MG/DL (0.70-1.30); GLOMERULAR FILTRATION RATE > 60.0 (>42); GLUCOSE, FASTING 90 MG/DL (70-100); POTASSIUM SERUM 4.3 MEQ/L (3.5-5.1); SODIUM LEVEL 140 MEQ/L (136-145); THYROID STIMULATING HORMONE 0.796 uIU/ML (0.358-3.740); TOTAL PROTEIN 6.1 GM/DL (6.4-8.2)
== END ==
LOC: M PLALAB 15:36
PROVIDERS: ATTEND Family Medicine
DX: D64.9 Anemia, unspecified (principal); I10 Essential (primary) hypertension; R53.83 Other fatigue

== ENCOUNTER → 2020-09-25 | Outpatient (CLI) | payer MEDICARE, OTHER ==
[2020-09-25 16:00] LABS: BASO # 0.1 10^3/uL (0.0-0.2); BASO % 0.9 % (0.0-1.0); EOS # 0.4 10^3/uL (0.0-0.5); EOS % 5.7 % (0.0-3.0); HEMATOCRIT 30.2 % (42.0-52.0); HEMOGLOBIN 9.4 g/dl (13.5-17.5); LYMPH # 1.2 10^3/uL (1.5-5.0); LYMPH % 16.6 % (24.0-44.0); MEAN CORPUSCULAR HEMOGLOBIN 30.1 pg (27.0-33.0); MEAN CORPUSCULAR HGB CONC 31.1 g/dl (32.0-36.5); MEAN CORPUSCULAR VOLUME 96.8 fl (80.0-96.0); MONO # 0.7 10^3/uL (0.0-0.8); MONO % 10.4 % (0.0-5.0); NEUTROPHILS # 4.7 10^3/uL (1.5-8.5); PLATELET COUNT, AUTOMATED 239 10^3/uL (150-450); RED BLOOD COUNT 3.12 10^6/uL (4.30-6.10); WHITE BLOOD COUNT 7.1 10^3/uL (4.0-10.0)
[2020-09-25 16:10] LABS: IMMUNOGLOBULIN G 810 MG/DL (681-1648); IMMUNOGLOBULIN M 37.4 MG/DL (40-230)
[2020-09-27 10:56] LABS: ALBUMIN % 47.3 % (55.8-66.1); ALPHA-1-GLOBULIN % 9.3 % (2.9-4.9); ALPHA-2-GLOBULINS % 16.5 % (7.1-11.8); BETA-1-GLOBULINS % 7.2 % (4.7-7.2)
[2020-09-27 10:57] LABS: ALBUMIN 2.84 GM/DL (3.29-5.55); ALPHA-1-GLOBULINS 0.56 GM/DL (0.17-0.41); ALPHA-2-GLOBULINS 0.99 GM/DL (0.42-0.99); BETA-1-GLOBULINS 0.43 GM/DL (0.28-0.60); BETA-2-GLOBULINS 0.45 GM/DL (0.19-0.55); BETA-2-GLOBULINS % 7.5 % (3.2-6.5); GAMMA GLOBULIN % 12.2 % (11.1-18.8); GAMMA GLOBULINS 0.73 GM/DL (0.65-1.58)
[2020-09-28 07:07] LABS: BETA 2 MICROGLOBULIN 2.3 mg/L (0.6-2.4); FREE KAPPA LIGHT CHAINS SERUM 30.5 mg/L (3.3-19.4); KAPPA/LAMBDA RATIO SERUM 1.39 (0.26-1.65)
== END ==
LOC: M PLALAB 13:54
PROVIDERS: ATTEND Internal Medicine Medical Oncology
DX: D69.3 Immune thrombocytopenic purpura (principal); D47.2 Monoclonal gammopathy; D64.9 Anemia, unspecified; I10 Essential (primary) hypertension; R53.83 Other fatigue

== ENCOUNTER → 2020-10-16 | Outpatient (CLI) | payer MEDICARE, OTHER ==
[~2020-10-16] MED LIST changes: -AMLO1TAB25; +AMLO1TAB25 PO; +E-Z-GAS II EFFERVESCENT PACKET (SODIUM BICARB./CITRIC ACID/SIMETHICONE) As Ordered ONE; +E-Z-HD 98% w/w 340GM SUSP BTL As Ordered ONE; +E-Z-PAQUE 96% w/w SUSP 176GM BTL As Ordered ONE; -HYDR100T; +HYDR100T PO; -LABE300T2; +LABE300T2 PO; +LIPI10TA PO
--- NOTE | 2020-10-16 16:31 | REP ---
INDICATION: RECTAL BLEED. COMPARISON: None. TECHNIQUE: The procedure was performed under the direct supervision of Dr. Cesar. The images were reviewed with Dr. Cesar. Liquid barium and gas producing granules were given in the erect position as well as liquid barium in the prone oblique position in order to perform double-contrast upper GI examination. 1.4 minutes of fluoro time was utilized for this procedure. FINDINGS: The oral and pharyngeal stages of deglutition are unremarkable. Esophageal transporter prompting deficient and there is no esophagitis or stricture. There is a sliding-type hiatal hernia. There is mucosal irregularity at the GE junction. There is gastroesophageal reflux demonstrated to below the level of the stewart. These findings are consistent with reflux esophagitis. The stomach castillo are normally aligned. The rugal folds are smooth and regular. There is no gastritis neoplasm or ulcer disease. The duodenum castillo are normally aligned. The mucosal folds are smooth and regular. There is no duodenitis pancreatitis peptic ulcer disease or neoplasm. The visualized portion of the proximal small bowel appears normal in course and caliber. IMPRESSION: There is a sliding-type hiatal hernia. There is gastroesophageal reflux demonstrated to below the level of the stewart. There is mucosal irregularity at the GE junction. These findings are consistent with reflux esophagitis. <Electronically signed by Javi Whiteside > 10/16/20 1618 <Electronically signed by Dean Cesar > 10/16/20 162
== END ==
LOC: M RAD 08:33
PROVIDERS: ATTEND Family Medicine
DX: K62.5 Hemorrhage of anus and rectum (principal)

== ENCOUNTER → 2020-10-31 | Outpatient (CLI) | payer MEDICARE, OTHER ==
[~2020-10-31] MED LIST changes: -E-Z-GAS II EFFERVESCENT PACKET (SODIUM BICARB./CITRIC ACID/SIMETHICONE) As Ordered ONE; -E-Z-HD 98% w/w 340GM SUSP BTL As Ordered ONE; -E-Z-PAQUE 96% w/w SUSP 176GM BTL As Ordered ONE
--- NOTE | 2020-10-31 12:41 | REP ---
INDICATION: ANEMIA COMPARISON: 08/31/2020 as well as other prior exams. TECHNIQUE: PA/Lateral FINDINGS: Lungs: Clear, no infiltrate. Heart: Normal in size. Mediastinum: There is some tortuosity and ectasia of the thoracic aorta. Mediastinal silhouette is unchanged.. Pleural angles: Unremarkable.. Bones and soft tissues: There is a chronic compression deformity of T12 unchanged.. IMPRESSION: No acute pulmonary disease. <Electronically signed by Josh Momin > 10/31/20 [id number]
[2020-10-31 13:04] LABS: HEMOGLOBIN 9.5 g/dl (13.5-17.5); MEAN CORPUSCULAR HEMOGLOBIN 27.8 pg (27.0-33.0); MEAN CORPUSCULAR HGB CONC 29.7 g/dl (32.0-36.5); MEAN CORPUSCULAR VOLUME 93.6 fl (80.0-96.0); PLATELET COUNT, AUTOMATED 130 10^3/uL (150-450); RED BLOOD COUNT 3.42 10^6/uL (4.30-6.10); WHITE BLOOD COUNT 7.6 10^3/uL (4.0-10.0)
[2020-10-31 13:46] LABS: ALT/SGPT 23 U/L (12-78); BILIRUBIN,TOTAL 0.3 MG/DL (0.2-1.0); BLOOD UREA NITROGEN 25 MG/DL (7-18); CALCIUM LEVEL 8.5 MG/DL (8.8-10.2); CARBON DIOXIDE LEVEL 29 MEQ/L (21-32); CHLORIDE LEVEL 109 MEQ/L (98-107); CHOLESTEROL LEVEL 135 MG/DL (<200); CHOLESTEROL RISK RATIO 2.812 (<5); CREATININE FOR GFR 1.02 MG/DL (0.70-1.30); GLOMERULAR FILTRATION RATE > 60.0 (>42); GLUCOSE, FASTING 91 MG/DL (70-100); HDL CHOLESTEROL 48 MG/DL (>40); IRON (FE) 31 UG/DL (65-175); LDL CHOLESTEROL 71 MG/DL (<100); NON-HDL-C 87 MG/DL; PERCENT SATURATION 13.4 % (19.7-50.0); POTASSIUM SERUM 4.4 MEQ/L (3.5-5.1); SODIUM LEVEL 142 MEQ/L (136-145); TOTAL IRON BINDING CAPACITY 232 UG/DL (250-450); TOTAL PROTEIN 6.1 GM/DL (6.4-8.2); TRIGLYCERIDES LEVEL 78 MG/DL (<150)
[2020-10-31 13:48] LABS: TOTAL 25(OH) VITAMIN D 58.8 NG/ML (30.0-100.0)
--- NOTE | 2020-11-01 19:15 | ECGEPIP ---
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
== END ==
LOC: M LAB 11:28
PROVIDERS: ATTEND Family Medicine
DX: D64.9 Anemia, unspecified (principal); E78.00 Pure hypercholesterolemia, unspecified

== ENCOUNTER → 2020-11-22 | Outpatient (CLI) | payer MEDICARE, OTHER ==
[2020-11-22 12:49] LABS: BLOOD UREA NITROGEN 29 MG/DL (7-18); CALCIUM LEVEL 9.1 MG/DL (8.8-10.2); CARBON DIOXIDE LEVEL 26 MEQ/L (21-32); CHLORIDE LEVEL 108 MEQ/L (98-107); GLOMERULAR FILTRATION RATE > 60.0 (>42); GLUCOSE, FASTING 98 MG/DL (70-100); POTASSIUM SERUM 3.9 MEQ/L (3.5-5.1); SODIUM LEVEL 142 MEQ/L (136-145)
[2020-11-22 13:01] LABS: MALB URINE SIEMENS 25.6 MG/L; MAU/CREAT RATIO 21.1 MCG/MG (0.0-30.0)
== END ==
LOC: M LAB 11:33
PROVIDERS: ATTEND Internal Medicine Cardiovascular Disease
DX: I10 Essential (primary) hypertension (principal)

== ENCOUNTER → 2020-11-27 | Outpatient (CLI) | payer MEDICARE, OTHER ==
--- NOTE | 2020-11-27 10:14 | REP ---
INDICATION: HTN COMPARISON: None None TECHNIQUE: Real time wayne scale ultrasound examination using curved array transducer followed by color Doppler evaluation of the renal vasculature. FINDINGS: The bilateral kidneys demonstrate increased central sinus fat and renovascular calcifications consistent with medical renal disease. No hydronephrosis. Right kidney measures 9.9 x 4.6 x 4.8 cm and includes 2.9 cm midpole simple cyst. Left kidney measures 10.6 x 4.5 x 6.5 cm with 2.2 cm simple peripelvic cyst. Bladder is under distended. A mid abdominal aortic aneurysm is identified measuring 3.1 x 3.2 cm diameter. Peak aortic velocity: 142.3 centimeters/second RIGHT KIDNEY Renal arterial velocity: 35.5 centimeters/second Renal-aortic ratio: 0.2 Intrarenal resistive indices: 0.56-0.65 Intrarenal acceleration times: 0.058-0.067 LEFT KIDNEY Renal arterial velocity: 108.7 centimeters/second Renal-aortic ratio: 0.70 Intrarenal resistive indices: 0.71-0.73 Intrarenal acceleration times: 0.092-0.117 IMPRESSION: 1. Kidneys demonstrate chronic medical renal disease and solitary simple cysts. 2. Doppler interrogation without definite findings to suggest renal arterial stenosis. 3. Abdominal aortic aneurysm measuring 3.1 x 3.2 cm diameter <Electronically signed by Jay Jay Monreal > 11/27/20 [id number]
== END ==
LOC: M RAD 08:39
PROVIDERS: ATTEND Internal Medicine Cardiovascular Disease
DX: I10 Essential (primary) hypertension (principal); N18.9 Chronic kidney disease, unspecified; N28.1 Cyst of kidney, acquired; I71.4 Abdominal aortic aneurysm, without rupture

== ENCOUNTER → 2020-11-30 | Outpatient (CLI) | payer MEDICARE, OTHER ==
[2020-11-30 14:00] LABS: HEMATOCRIT 31.8 % (42.0-52.0); HEMOGLOBIN 9.5 g/dl (13.5-17.5); MEAN CORPUSCULAR HEMOGLOBIN 27.1 pg (27.0-33.0); MEAN CORPUSCULAR HGB CONC 29.9 g/dl (32.0-36.5); MEAN CORPUSCULAR VOLUME 90.9 fl (80.0-96.0); PLATELET COUNT, AUTOMATED 128 10^3/uL (150-450)
[2020-11-30 14:31] LABS: ALBUMIN 2.9 GM/DL (3.2-5.2); ALT/SGPT 15 U/L (12-78); BILIRUBIN,TOTAL 0.2 MG/DL (0.2-1.0); BLOOD UREA NITROGEN 28 MG/DL (7-18); CALCIUM LEVEL 8.6 MG/DL (8.8-10.2); CARBON DIOXIDE LEVEL 28 MEQ/L (21-32); CHLORIDE LEVEL 109 MEQ/L (98-107); CHOLESTEROL LEVEL 159 MG/DL (<200); CHOLESTEROL RISK RATIO 3.533 (<5); CREATININE FOR GFR 1.09 MG/DL (0.70-1.30); GLOMERULAR FILTRATION RATE > 60.0 (>42); GLUCOSE, FASTING 93 MG/DL (70-100); HDL CHOLESTEROL 45 MG/DL (>40); LDL CHOLESTEROL 99 MG/DL (<100); NON-HDL-C 114 MG/DL; POTASSIUM SERUM 4.1 MEQ/L (3.5-5.1); PROSTATIC SPECIFIC AG MONITOR 0.28 NG/ML (< 4.00); SODIUM LEVEL 144 MEQ/L (136-145); TOTAL PROTEIN 6.1 GM/DL (6.4-8.2); TRIGLYCERIDES LEVEL 73 MG/DL (<150)
[2020-11-30 14:33] LABS: TESTOSTERONE 370 NG/DL (241-827)
== END ==
LOC: M PLALAB 11:35
PROVIDERS: ATTEND Family Medicine
DX: E03.9 Hypothyroidism, unspecified (principal); D64.9 Anemia, unspecified; R53.83 Other fatigue

== ENCOUNTER → 2021-01-02 | Outpatient (CLI) | payer MEDICARE, OTHER ==
[~2021-01-02] MED LIST changes: +ASPI81CH33 PO; +AVOD0.5C PO; +FERR325T3 PO; +MIRA0.12 PO
== END ==
LOC: M PLALAB 15:15
PROVIDERS: ATTEND Internal Medicine Cardiovascular Disease
DX: I49.3 Ventricular premature depolarization (principal)

== ENCOUNTER → 2021-01-04 | Outpatient (CLI) | payer MEDICARE, OTHER ==
[~2021-01-04] MED LIST changes: +ISOVUE-370 76% 100ML VIAL As Ordered ONE
--- NOTE | 2021-01-04 15:15 | REP ---
INDICATION: AORTIC DISCETION DISTAL TO LT SUBCLAVION. COMPARISON: Comparison CT study August 17, 2020.. TECHNIQUE: Contrast dose: 100 ML of Isovue [address] technique: Helical scanning is acquired and overlapping 1.5 mm and contiguous 3 mm axial images are reformatted. In addition, maximum intensity projection and multiplanar re-formation images are generated in sagittal and coronal imaging projections. FINDINGS: There is good opacification of the pulmonary arterial tree. There is no CT evidence of pulmonary embolus. The patient's known is a descending thoracic aortic dissection is again seen. The false lumen is partially opacified at approximately in the descending aorta and better opacified distally extending to just above the diaphragmatic hiatus. It is essentially unchanged in size extent. No mediastinal mass or hematoma is seen. No pleural or pericardial effusion is observed. No infiltrate or significant pulmonary edema seen. There is no evidence of pericardial effusion. The dissection does not appear to extend proximal to the great vessel origins. Bone window settings show no bony destructive lesion. There are osteoarthritic changes in shoulders, right more so than left.. IMPRESSION: No CT evidence of pulmonary embolus. Known type 2 thoracic aortic dissection distal to the great vessel origins is again seen unchanged in extent. <Electronically signed by Dean Cesar > 01/04/21 [id number]
--- NOTE | 2021-01-04 15:35 | REP ---
INDICATION: AORTIC DISCETION DISTAL TO LT SUBCLAVION. COMPARISON: None. TECHNIQUE: 100 mL of intravenous Isovue 370 is administered. Helical scanning is acquired. 3 mm axial images re-formatted at 1.5 mm intervals. Coronal and sagittal MPR images are generated. FINDINGS: Nonvascular CT findings include small parapelvic left renal cysts, a cortical cyst involving the right kidney measuring 3.2 cm in greatest diameter, mild left colonic diverticulosis, and dystrophic calcifications in the prostate. There is mild osteoarthritis affecting the hips and degenerative disc and facet changes are noted in the lower lumbar spine most pronounced at L4-5. There is and an old appearing wedge compression deformity at T12 mild in degree. 9 the type 2 descending thoracic dissection is again seen. This appears to terminate above the diaphragmatic hiatus. The abdominal aorta both the suprarenal and infrarenal segments, show fairly heavy vascular calcification and some circumferential plaquing. No haylie dissection is seen. There is mild narrowing at the origin of the celiac axis. SMA shows calcification at its origin but no significant stenosis. The inferior mesenteric artery is tiny but appears to be patent at its origin. There appears to be a short segment occlusion versus high-grade pinpoint stenosis of the right renal artery and there is right renal atrophy. There is an accessory left renal artery lower pole. Heavy calcific plaquing is seen at its origin. Consistent with stenosis. The main renal artery origin is felt to be what moderately stenotic as well. There is vascular calcification and plaquing in the common iliac arteries without high-grade common iliac artery stenosis on either side. There is focal plaquing and high-grade stenosis of the proximal internal iliac artery on the left and moderate plaquing is seen on the right. The external iliac arteries are tortuous. There are bilateral superficial femoral arteries occlusions at their origins. IMPRESSION: The thoracic dissection appears. Above the diaphragmatic hiatus. High-grade stenoses bilateral renal arteries as above. Proximal SFA occlusions are observed bilaterally as well. <Electronically signed by Dean Cesar > 01/04/21 1515
== END ==
LOC: M RAD 14:09
PROVIDERS: ATTEND Surgery
DX: I71.01 Dissection of thoracic aorta (principal)
CPT/HCPCS: 71275; 74174; Q9967

== ENCOUNTER → 2021-06-15 | Outpatient (CLI) | payer MEDICARE, OTHER ==
[~2021-06-15] MED LIST changes: -ISOVUE-370 76% 100ML VIAL As Ordered ONE; +VALS1TAB67 PO
== END ==
LOC: M LABSMTC 11:25
PROVIDERS: ATTEND Surgery Vascular Surgery
DX: Z01.812 Encounter for preprocedural laboratory examination (principal); I65.23 Occlusion and stenosis of bilateral carotid arteries; Z20.822 Contact with and (suspected) exposure to COVID-19

== ENCOUNTER → 2021-06-18 | Outpatient (CLI) | payer MEDICARE, OTHER ==
[2021-06-18 15:45] LABS: BASO # 0.1 10^3/uL (0.0-0.2); BASO % 1.4 % (0.0-1.0); EOS # 0.3 10^3/uL (0.0-0.5); EOS % 5.3 % (0.0-3.0); HEMOGLOBIN 11.8 g/dl (13.5-17.5); LYMPH # 1.3 10^3/uL (1.5-5.0); LYMPH % 25.7 % (24.0-44.0); MEAN CORPUSCULAR HEMOGLOBIN 30.5 pg (27.0-33.0); MEAN CORPUSCULAR HGB CONC 31.9 g/dl (32.0-36.5); MEAN CORPUSCULAR VOLUME 95.6 fl (80.0-96.0); MONO # 0.5 10^3/uL (0.0-0.8); MONO % 9.3 % (2.0-8.0); NEUTROPHILS # 2.8 10^3/uL (1.5-8.5); NEUTROPHILS % 57.9 % (36.0-66.0); RED BLOOD COUNT 3.87 10^6/uL (4.30-6.10); WHITE BLOOD COUNT 4.9 10^3/uL (4.0-10.0)
[2021-06-18 15:46] LABS: PLATELET COUNT, AUTOMATED 52 10^3/uL (150-450)
[2021-06-18 16:04] LABS: BLOOD UREA NITROGEN 30 MG/DL (7-18); CALCIUM LEVEL 8.5 MG/DL (8.8-10.2); CARBON DIOXIDE LEVEL 28 MEQ/L (21-32); CHLORIDE LEVEL 112 MEQ/L (98-107); CREATININE FOR GFR 1.16 MG/DL (0.70-1.30); GLOMERULAR FILTRATION RATE > 60.0 (>42); GLUCOSE, FASTING 83 MG/DL (70-100); POTASSIUM SERUM 4.8 MEQ/L (3.5-5.1); SODIUM LEVEL 142 MEQ/L (136-145)
[2021-06-18 16:19] LABS: INR 1.06; PROTHROMBIN TIME 14.2 SECONDS (12.7-14.5)
[2021-06-18 16:20] LABS: PARTIAL THROMBOPLASTIN TIME 32.4 SECONDS (25.9-37.0)
== END ==
LOC: M PLALAB 12:47
DX: I70.213 Atherosclerosis of native arteries of extremities with intermittent claudication, bilateral legs (principal); D69.8 Other specified hemorrhagic conditions; Z01.818 Encounter for other preprocedural examination

== ENCOUNTER 2021-07-24 08:07 | Outpatient (CLI) | payer MEDICARE, OTHER ==
[~2021-07-24] VITALS: Ht 175.3 cm; Wt 78.0 kg
[~2021-07-24 08:07] MED LIST changes: +ACETAMINOPHEN TAB 650MG DOSE (2X325MG) PO ONE; +IMMUNE GLOBULIN 10% 10 GM in IV 1 EA IV ONE; +IMMUNE GLOBULIN 10% 20 GM in IV 1 EA IV ONE
[2021-07-24 08:15] VITALS: BP 128/60
[2021-07-24 08:28] LABS: HEMATOCRIT 37.6 % (42.0-52.0); HEMOGLOBIN 12.3 g/dl (13.5-17.5); MEAN CORPUSCULAR HEMOGLOBIN 31.6 pg (27.0-33.0); MEAN CORPUSCULAR HGB CONC 32.7 g/dl (32.0-36.5); MEAN CORPUSCULAR VOLUME 96.7 fl (80.0-96.0); RED BLOOD COUNT 3.89 10^6/uL (4.30-6.10); WHITE BLOOD COUNT 6.3 10^3/uL (4.0-10.0)
[2021-07-24] MEDS: FAMOTIDINE IV BAG 20 MG in IV 1 EA IV ONE ×3 (09:00→10:03)
[2021-07-24] MEDS ORDERED: FAMOTIDINE INJ 20MG/2ML VIAL (S0028 PER 1) IV ONE (09:00)
[2021-07-24] MEDS ORDERED: diphenhydrAMINE 25MG CAP PO ONE (09:00)
[2021-07-24 09:01] LABS: PLATELET COUNT, AUTOMATED 73 10^3/uL (150-450)
[2021-07-24] MEDS ORDERED: FAMOTIDINE/NS 20 MG/50 ML BAG (S0028) As Ordered ONE (09:24)
[2021-07-24 10:41] VITALS: BP 126/58
[2021-07-24 11:30] VITALS: BP 132/56
[2021-07-24 13:00] VITALS: BP 136/64
== END 2021-07-24 13:00 | disposition home or self-care (01) ==
LOC: M INFU 08:07
PROVIDERS: ATTEND Specialist
DX: D69.3 Immune thrombocytopenic purpura (principal)
CPT/HCPCS: 36592; 85027; 85049; 85055; 96365; 96366; 96367; J1459

== ENCOUNTER → 2021-08-12 | Outpatient (CLI) | payer MEDICARE, OTHER ==
[~2021-08-12] MED LIST changes: -ACETAMINOPHEN TAB 650MG DOSE (2X325MG) PO ONE; -IMMUNE GLOBULIN 10% 10 GM in IV 1 EA IV ONE; -IMMUNE GLOBULIN 10% 20 GM in IV 1 EA IV ONE
== END ==
LOC: M LABSMTC 10:15
PROVIDERS: ATTEND Surgery Vascular Surgery
DX: Z11.52 Encounter for screening for COVID-19 (principal)

== ENCOUNTER → 2021-09-05 | Outpatient (CLI) | payer MEDICARE, OTHER ==
[2021-09-05 17:24] LABS: BASO # 0.1 10^3/uL (0.0-0.2); BASO % 0.7 % (0.0-1.0); EOS # 0.1 10^3/uL (0.0-0.5); EOS % 1.3 % (0.0-3.0); HEMATOCRIT 36.2 % (42.0-52.0); HEMOGLOBIN 11.5 g/dl (13.5-17.5); LYMPH # 0.9 10^3/uL (1.5-5.0); LYMPH % 13.6 % (24.0-44.0); MEAN CORPUSCULAR HEMOGLOBIN 31.5 pg (27.0-33.0); MEAN CORPUSCULAR HGB CONC 31.8 g/dl (32.0-36.5); MEAN CORPUSCULAR VOLUME 99.2 fl (80.0-96.0); MONO # 0.7 10^3/uL (0.0-0.8); MONO % 10.1 % (2.0-8.0); NEUTROPHILS # 5.1 10^3/uL (1.5-8.5); NEUTROPHILS % 73.9 % (36.0-66.0); RED BLOOD COUNT 3.65 10^6/uL (4.30-6.10); WHITE BLOOD COUNT 6.9 10^3/uL (4.0-10.0)
[2021-09-05 17:26] LABS: PLATELET COUNT, AUTOMATED 81 10^3/uL (150-450)
[2021-09-05 17:48] LABS: BILIRUBIN,TOTAL 0.4 MG/DL (0.2-1.0); CALCIUM LEVEL 8.6 MG/DL (8.8-10.2); CREATININE FOR GFR 1.69 MG/DL (0.70-1.30); POTASSIUM SERUM 4.6 MEQ/L (3.5-5.1)
== END ==
LOC: M PLALAB 15:40
PROVIDERS: ATTEND Specialist
DX: D69.3 Immune thrombocytopenic purpura (principal)

== ENCOUNTER → 2021-09-20 | Outpatient (CLI) | payer MEDICARE, OTHER ==
[~2021-09-20] MED LIST changes: +OMEP-221
== END ==
LOC: M LABSMTC 10:20
PROVIDERS: ATTEND Anesthesiology
DX: Z01.812 Encounter for preprocedural laboratory examination (principal); Z20.822 Contact with and (suspected) exposure to COVID-19

== ENCOUNTER 2021-09-25 08:16 | Day surgery (SDC) | payer MEDICARE, OTHER ==
[~2021-09-25] VITALS: Ht 177.8 cm; Wt 77.5 kg
[~2021-09-25 08:16] MED LIST changes: +LIDOCAINE 2% 100MG/5ML SDV (FOR ANES.) As Ordered ONE; +NS 1,000 ML IV ONE; -OMEP-221; +OMEP40CA5; +propofoL 200 MG/20 ML VIAL As Ordered ONE
[2021-09-25 09:56] VITALS: BP 139/64
== END 2021-09-25 10:13 | disposition home or self-care (01) ==
LOC: M OPP 08:16
PROVIDERS: ATTEND Internal Medicine Gastroenterology
DX: K29.70 Gastritis, unspecified, without bleeding (principal); R13.10 Dysphagia, unspecified; R12 Heartburn; R93.3 Abnormal findings on diagnostic imaging of other parts of digestive tract; Z79.82 Long term (current) use of aspirin; Z79.899 Other long term (current) drug therapy; Z87.891 Personal history of nicotine dependence

== ENCOUNTER → 2021-11-21 | Outpatient (CLI) | payer MEDICARE, OTHER ==
[~2021-11-21] MED LIST changes: -LIDOCAINE 2% 100MG/5ML SDV (FOR ANES.) As Ordered ONE; -NS 1,000 ML IV ONE; -propofoL 200 MG/20 ML VIAL As Ordered ONE
[2021-11-21 17:14] LABS: BASO # 0.1 10^3/uL (0.0-0.2); BASO % 0.8 % (0.0-1.0); EOS # 0.2 10^3/uL (0.0-0.5); EOS % 2.8 % (0.0-3.0); HEMATOCRIT 40.6 % (42.0-52.0); HEMOGLOBIN 12.8 g/dl (13.5-17.5); LYMPH # 1.2 10^3/uL (1.5-5.0); LYMPH % 19.4 % (24.0-44.0); MEAN CORPUSCULAR HEMOGLOBIN 31.9 pg (27.0-33.0); MEAN CORPUSCULAR HGB CONC 31.5 g/dl (32.0-36.5); MEAN CORPUSCULAR VOLUME 101.2 fl (80.0-96.0); MONO # 0.6 10^3/uL (0.0-0.8); MONO % 9.3 % (2.0-8.0); NEUTROPHILS # 4.1 10^3/uL (1.5-8.5); NEUTROPHILS % 67.5 % (36.0-66.0); PLATELET COUNT, AUTOMATED 142 10^3/uL (150-450); RED BLOOD COUNT 4.01 10^6/uL (4.30-6.10)
[2021-11-21 17:31] LABS: ALBUMIN 3.2 GM/DL (3.2-5.2); BILIRUBIN,TOTAL 0.3 MG/DL (0.2-1.0); CREATININE FOR GFR 1.42 MG/DL (0.70-1.30); GLOMERULAR FILTRATION RATE 51.2 (>42); POTASSIUM SERUM 4.6 MEQ/L (3.5-5.1)
== END ==
LOC: M PLALAB 15:11
PROVIDERS: ATTEND Specialist
DX: D69.3 Immune thrombocytopenic purpura (principal)

== ENCOUNTER → 2021-12-23 | Outpatient (CLI) | payer MEDICARE, OTHER ==
[~2021-12-23] MED LIST changes: -D31000TA2 PO; +VITA100093 PO
[2021-12-23 16:11] LABS: CHOLESTEROL RISK RATIO 2.781 (<5)
== END ==
LOC: M PLALAB 12:07
PROVIDERS: ATTEND Family Medicine
DX: E78.2 Mixed hyperlipidemia (principal)

== ENCOUNTER → 2022-06-03 | Outpatient (CLI) | payer MEDICARE, OTHER ==
[~2022-06-03] MED LIST changes: -LABE300T2 PO; +LABE300T55 PO
[2022-06-03 15:44] LABS: BASO # 0.1 10^3/uL (0.0-0.2); BASO % 1.2 % (0.0-1.0); EOS # 0.2 10^3/uL (0.0-0.5); EOS % 2.9 % (0.0-3.0); HEMATOCRIT 43.9 % (42.0-52.0); HEMOGLOBIN 14.2 g/dl (13.5-17.5); LYMPH # 1.3 10^3/uL (1.5-5.0); LYMPH % 22.7 % (24.0-44.0); MEAN CORPUSCULAR HEMOGLOBIN 31.1 pg (27.0-33.0); MEAN CORPUSCULAR HGB CONC 32.3 g/dl (32.0-36.5); MEAN CORPUSCULAR VOLUME 96.3 fl (80.0-96.0); MONO # 0.6 10^3/uL (0.0-0.8); MONO % 10.9 % (2.0-8.0); NEUTROPHILS # 3.6 10^3/uL (1.5-8.5); NEUTROPHILS % 62.1 % (36.0-66.0); RED BLOOD COUNT 4.56 10^6/uL (4.30-6.10); WHITE BLOOD COUNT 5.8 10^3/uL (4.0-10.0)
[2022-06-03 15:59] LABS: ALBUMIN 3.5 GM/DL (3.2-5.2); BILIRUBIN,TOTAL 0.4 MG/DL (0.2-1.0); CREATININE FOR GFR 1.28 MG/DL (0.70-1.30); GLOMERULAR FILTRATION RATE 57.7 (>42); POTASSIUM SERUM 4.1 MEQ/L (3.5-5.1); TOTAL PROTEIN 6.1 GM/DL (6.4-8.2)
[2022-06-03 16:07] LABS: PLATELET COUNT, AUTOMATED 83 10^3/uL (150-450)
== END ==
LOC: M PLALAB 11:26
PROVIDERS: ATTEND Specialist
DX: D69.3 Immune thrombocytopenic purpura (principal)

== ENCOUNTER 2022-10-25 08:57 | Emergency (ER) | payer MEDICARE, OTHER ==
[~2022-10-25] VITALS: Ht 177.8 cm; Wt 79.1 kg
[~2022-10-25 08:57] MED LIST changes: +GARL3CAP4 PO
[2022-10-25] MEDS ORDERED: GABA-1171 (09:17)
[2022-10-25] MEDS ORDERED: AVOD0.5C PO (09:17)
[2022-10-25] MEDS ORDERED: AMIO200T49 (09:17)
[2022-10-25] MEDS ORDERED: ATOR40TA75 (09:17)
[2022-10-25 09:40] LABS: BASO # 0.1 10^3/uL (0.0-0.2); EOS # 0.3 10^3/uL (0.0-0.5); EOS % 4.8 % (0.0-3.0); HEMATOCRIT 40.5 % (42.0-52.0); HEMOGLOBIN 13.4 g/dl (13.5-17.5); LYMPH # 1.2 10^3/uL (1.5-5.0); LYMPH % 20.4 % (24.0-44.0); MEAN CORPUSCULAR HEMOGLOBIN 31.8 pg (27.0-33.0); MEAN CORPUSCULAR HGB CONC 33.1 g/dl (32.0-36.5); MONO # 0.7 10^3/uL (0.0-0.8); MONO % 11.1 % (2.0-8.0); NEUTROPHILS # 3.7 10^3/uL (1.5-8.5); NEUTROPHILS % 62.4 % (36.0-66.0); RED BLOOD COUNT 4.22 10^6/uL (4.30-6.10); WHITE BLOOD COUNT 5.9 10^3/uL (4.0-10.0)
[2022-10-25 09:41] LABS: PLATELET COUNT, AUTOMATED 60 10^3/uL (150-450)
[2022-10-25 10:02] LABS: CK-MB VALUE MASS 6.4 NG/ML (<3.6)
[2022-10-25 10:03] LABS: MAGNESIUM LEVEL 1.8 MG/DL (1.8-2.4)
[2022-10-25 10:04] LABS: BILIRUBIN,DIRECT 0.2 MG/DL (<0.4)
[2022-10-25 10:05] LABS: ALBUMIN 3.4 G/DL (3.2-5.2); BILIRUBIN,TOTAL 0.6 MG/DL (0.3-1.2); CALCIUM LEVEL 8.5 MG/DL (8.3-10.6); CREATININE FOR GFR 1.32 MG/DL (0.70-1.30); GLOMERULAR FILTRATION RATE 55.7 (>42); POTASSIUM SERUM 4.3 MMOL/L (3.5-5.1); TOTAL PROTEIN 5.8 G/DL (5.7-8.2)
[2022-10-25 10:06] LABS: FREE T4 1.3 NG/DL (0.89-1.76); THYROID STIMULATING HORMONE 2.813 uIU/ML (0.55-4.78)
[2022-10-25 10:10] LABS: MB/CK RELATIVE INDEX 3.72 (< OR =4)
[2022-10-25] MEDS ORDERED: ASPIRIN 81MG CHEW TABLET PO ONE (10:15)
[2022-10-25] MEDS ORDERED: ISOVUE-370 76% 100ML VIAL As Ordered ONE (10:20)
[2022-10-25 11:15] LABS: CK-MB VALUE MASS 5.3 NG/ML (<3.6)
[2022-10-25 11:28] LABS: MB/CK RELATIVE INDEX 3.46 (< OR =4)
[2022-10-25] MEDS ORDERED: HEPARIN DRIP 25,000 UNITS in IV 1 EA IV SCH ×2 (11:50→12:15)
[2022-10-25] MEDS ORDERED: HEPARIN SOD (PORCINE) 5000UNITS/ML 1ML VIAL/SYRINGE IV ONE (11:50)
[2022-10-25] MEDS ORDERED: CLOPIDOGREL 300 MG TAB (PLAVIX) PO ONE (11:50)
[2022-10-25 11:51] LABS: RSV AMPLIFICATION NEGATIVE (NEGATIVE)
[2022-10-25 13:02] LABS: INR 1.01; PROTHROMBIN TIME 13.5 SECONDS (12.5-14.5)
[2022-10-25 13:11] LABS: CK-MB VALUE MASS 4.8 NG/ML (<3.6)
[2022-10-25 13:14] LABS: MB/CK RELATIVE INDEX 3.03 (< OR =4)
[2022-10-25 14:15] VITALS: BP 161/76
== END 2022-10-25 14:23 | disposition short-term general hospital (02) ==
LOC: M ED 08:57
DX: I21.4 Non-ST elevation (NSTEMI) myocardial infarction (principal); I24.9 Acute ischemic heart disease, unspecified; I25.10 Atherosclerotic heart disease of native coronary artery without angina pectoris; I25.2 Old myocardial infarction; I10 Essential (primary) hypertension; Z79.899 Other long term (current) drug therapy
CPT/HCPCS: 71045; 71275; 80048; 80076; 82550; 82553; 83690; 83735; 84439; 84443; 84484; 85025; 85049; 85055; 85610; 87631; 93005; 93041; 94760; 96374; 99285; Q9967

== ENCOUNTER → 2022-12-15 | Outpatient (CLI) | payer MEDICARE, OTHER ==
[~2022-12-15] MED LIST changes: +AMIO200T49; +ATOR40TA75; +GABA-1171
[2022-12-15 13:34] LABS: HEMATOCRIT 41.6 % (42.0-52.0); HEMOGLOBIN 13.3 g/dl (13.5-17.5); MEAN CORPUSCULAR VOLUME 100.2 fl (80.0-96.0); RED BLOOD COUNT 4.15 10^6/uL (4.30-6.10); WHITE BLOOD COUNT 6.3 10^3/uL (4.0-10.0)
[2022-12-15 13:45] LABS: PLATELET COUNT, AUTOMATED 76 10^3/uL (150-450)
[2022-12-15 14:02] LABS: ALBUMIN 3.4 G/DL (3.2-5.2); ALKALINE PHOSPHATASE 94 U/L (46-116); ALT/SGPT 20 U/L (7.0-40); AST/SGOT 30 U/L (<34); BILIRUBIN,TOTAL 0.5 MG/DL (0.3-1.2); BLOOD UREA NITROGEN 26 MG/DL (9-23); CALCIUM LEVEL 8.3 MG/DL (8.3-10.6); CARBON DIOXIDE LEVEL 29 MMOL/L (20-31); CHLORIDE LEVEL 108 MMOL/L (98-107); CHOLESTEROL LEVEL 170 MG/DL (<200); CHOLESTEROL RISK RATIO 3.51 (<5); GLOMERULAR FILTRATION RATE > 60.0 (>35); GLUCOSE, FASTING 87 MG/DL (74-106); HDL CHOLESTEROL 48.4 MG/DL (>40); MAGNESIUM LEVEL 1.8 MG/DL (1.8-2.4); NON-HDL-C 122 MG/DL; POTASSIUM SERUM 4.2 MMOL/L (3.5-5.1); SODIUM LEVEL 142 MMOL/L (136-145); TRIGLYCERIDES LEVEL 113 MG/DL (<150)
== END ==
LOC: M PLALAB 11:26
PROVIDERS: ATTEND Physician Assistant
DX: I25.10 Atherosclerotic heart disease of native coronary artery without angina pectoris (principal); I11.9 Hypertensive heart disease without heart failure; E78.00 Pure hypercholesterolemia, unspecified; I49.3 Ventricular premature depolarization

== ENCOUNTER 2022-12-28 06:20 | Emergency (ER) | payer MEDICARE, OTHER ==
[~2022-12-28] VITALS: Ht 177.8 cm; Wt 81.8 kg
[2022-12-28] MEDS ORDERED: CLOP75TA2 (06:37)
[2022-12-28] MEDS ORDERED: METO1TAB32 (06:37)
[2022-12-28 07:20] LABS: BASO # 0.1 10^3/uL (0.0-0.2); BASO % 1.1 % (0.0-1.0); EOS # 0.3 10^3/uL (0.0-0.5); EOS % 4.3 % (0.0-3.0); HEMATOCRIT 40.2 % (42.0-52.0); HEMOGLOBIN 13.2 g/dl (13.5-17.5); LYMPH % 12.8 % (24.0-44.0); MEAN CORPUSCULAR HEMOGLOBIN 32.1 pg (27.0-33.0); MEAN CORPUSCULAR HGB CONC 32.8 g/dl (32.0-36.5); MEAN CORPUSCULAR VOLUME 97.8 fl (80.0-96.0); NEUTROPHILS # 5.5 10^3/uL (1.5-8.5); NEUTROPHILS % 69.4 % (36.0-66.0); RED BLOOD COUNT 4.11 10^6/uL (4.30-6.10); WHITE BLOOD COUNT 7.9 10^3/uL (4.0-10.0)
[2022-12-28 07:23] LABS: PLATELET COUNT, AUTOMATED 45 10^3/uL (150-450)
[2022-12-28 08:01] LABS: CALCIUM LEVEL 8.7 MG/DL (8.3-10.6); CREATININE FOR GFR 1.24 MG/DL (0.70-1.30); GLOMERULAR FILTRATION RATE 59.7 (>35); MAGNESIUM LEVEL 1.8 MG/DL (1.8-2.4); POTASSIUM SERUM 4.6 MMOL/L (3.5-5.1)
[2022-12-28] MEDS ORDERED: NS 500 ML IV ONE (08:30)
[2022-12-28 09:45] VITALS: BP 155/73
== END 2022-12-28 09:46 | disposition home or self-care (01) ==
LOC: M ED 06:20
DX: R00.2 Palpitations (principal); I10 Essential (primary) hypertension; D69.6 Thrombocytopenia, unspecified; I25.10 Atherosclerotic heart disease of native coronary artery without angina pectoris; E78.5 Hyperlipidemia, unspecified; I73.9 Peripheral vascular disease, unspecified; N18.9 Chronic kidney disease, unspecified; D69.3 Immune thrombocytopenic purpura; Z87.891 Personal history of nicotine dependence; Z79.899 Other long term (current) drug therapy

== ENCOUNTER → 2023-03-23 | Outpatient (CLI) | payer MEDICARE, OTHER ==
[~2023-03-23] MED LIST changes: +CLOP75TA2; +METO1TAB32
[2023-03-23 14:37] LABS: CALCIUM LEVEL 8.4 MG/DL (8.3-10.6); CREATININE FOR GFR 1.42 MG/DL (0.70-1.30); GLOMERULAR FILTRATION RATE 51.1 (>35)
== END ==
LOC: M PLALAB 10:00
PROVIDERS: ATTEND Physician Assistant
DX: I11.9 Hypertensive heart disease without heart failure (principal)

== ENCOUNTER 2023-06-11 17:21 | Emergency (ER) | payer MEDICARE, OTHER ==
[~2023-06-11] VITALS: Ht 177.8 cm; Wt 80.4 kg
[2023-06-11] MEDS ORDERED: ZOLP5TAB (17:35)
[2023-06-11] MEDS ORDERED: CHLO125TA (17:35)
[2023-06-11] MEDS ORDERED: TADA5TAB (17:35)
[2023-06-11 19:12] LABS: BASO # 0.1 10^3/uL (0.0-0.2); BASO % 0.6 % (0.0-1.0); EOS # 0.1 10^3/uL (0.0-0.5); EOS % 0.6 % (0.0-3.0); HEMOGLOBIN 13.7 g/dl (13.5-17.5); LYMPH # 0.7 10^3/uL (1.5-5.0); LYMPH % 7.3 % (24.0-44.0); MEAN CORPUSCULAR HEMOGLOBIN 32.2 pg (27.0-33.0); MEAN CORPUSCULAR HGB CONC 33.4 g/dl (32.0-36.5); MEAN CORPUSCULAR VOLUME 96.2 fl (80.0-96.0); MONO # 0.9 10^3/uL (0.0-0.8); MONO % 9.3 % (2.0-8.0); NEUTROPHILS # 8.3 10^3/uL (1.5-8.5); NEUTROPHILS % 81.7 % (36.0-66.0); PLATELET COUNT, AUTOMATED 68 10^3/uL (150-450); RED BLOOD COUNT 4.26 10^6/uL (4.30-6.10); WHITE BLOOD COUNT 10.1 10^3/uL (4.0-10.0)
[2023-06-11 19:39] LABS: ALBUMIN 3.3 G/DL (3.2-5.2); ALKALINE PHOSPHATASE 77 U/L (46-116); ALT/SGPT 16 U/L (7.0-40); AST/SGOT 24 U/L (<34); BILIRUBIN,DIRECT < 0.1 MG/DL (<0.4); BILIRUBIN,TOTAL 0.4 MG/DL (0.3-1.2); BLOOD UREA NITROGEN 33 MG/DL (9-23); CALCIUM LEVEL 8.6 MG/DL (8.3-10.6); CARBON DIOXIDE LEVEL 23 MMOL/L (20-31); CHLORIDE LEVEL 111 MMOL/L (98-107); CK-MB VALUE MASS 2.2 NG/ML (<3.6); CREATININE FOR GFR 1.43 MG/DL (0.70-1.30); GLOMERULAR FILTRATION RATE 50.7 (>35); GLUCOSE, FASTING 101 MG/DL (74-106); POTASSIUM SERUM 4.4 MMOL/L (3.5-5.1); SODIUM LEVEL 143 MMOL/L (136-145); TOTAL PROTEIN 5.9 G/DL (5.7-8.2)
[2023-06-11 19:40] LABS: THYROID STIMULATING HORMONE 2.394 uIU/ML (0.55-4.78)
[2023-06-11 19:41] LABS: FREE T4 1.23 NG/DL (0.89-1.76)
[2023-06-11 19:50] LABS: CPK CREATINE PHOSPHOKINASE 84 U/L (46-171); MB/CK RELATIVE INDEX 2.61 (< OR =4)
[2023-06-11] MEDS ORDERED: ISOVUE-370 76% 100ML VIAL As Ordered ONE (19:59)
[2023-06-11 21:03] LABS: CK-MB VALUE MASS 2.8 NG/ML (<3.6)
[2023-06-11 21:07] LABS: MB/CK RELATIVE INDEX 3.73 (< OR =4)
[2023-06-11 23:06] LABS: CK-MB VALUE MASS 3.2 NG/ML (<3.6)
[2023-06-11 23:08] LABS: MB/CK RELATIVE INDEX 4.1 (< OR =4)
[2023-06-11 23:25] VITALS: BP 165/86; TEMP 98; O2SAT 96
== END 2023-06-12 00:35 | disposition home or self-care (01) ==
LOC: M ED 17:21
DX: R00.2 Palpitations (principal); I10 Essential (primary) hypertension; I25.2 Old myocardial infarction; Z86.79 Personal history of other diseases of the circulatory system; Z95.0 Presence of cardiac pacemaker; Z79.02 Long term (current) use of antithrombotics/antiplatelets; Z79.891 Long term (current) use of opiate analgesic; Z79.899 Other long term (current) drug therapy
CPT/HCPCS: 36415; 71045; 71275; 80048; 80076; 82550; 82553; 84439; 84443; 84484; 85025; 85049; 85055; 93005; 99284; Q9967

== ENCOUNTER → 2023-07-10 | Outpatient (CLI) | payer MEDICARE, OTHER ==
[~2023-07-10] MED LIST changes: +CHLO125TA; +TADA5TAB; +ZOLP5TAB
== END ==
LOC: M PLALAB 13:06
PROVIDERS: ATTEND Nurse Practitioner Family
DX: N40.1 Benign prostatic hyperplasia with lower urinary tract symptoms (principal)

== ENCOUNTER → 2023-08-13 | Outpatient (CLI) | payer MEDICARE, OTHER ==
[2023-08-13 16:41] LABS: APPEARANCE, URINE CLEAR (CLEAR); BACTERIA, URINE AUTO NEGATIVE (NEGATIVE); BILIRUBIN, URINE AUTO NEGATIVE (NEGATIVE); BLOOD, URINE BLOOD NEGATIVE (NEGATIVE); COLOR, URINE YELLOW (YELLOW); GLUCOSE, URINE (UA) AUTO NEGATIVE (NEGATIVE); KETONE, URINE AUTO NEGATIVE (NEGATIVE); LEUKOCYTE ESTERASE, URINE AUTO NEGATIVE (NEGATIVE); MUCUS, URINE SMALL (NEGATIVE); NITRITE, URINE AUTO NEGATIVE (NEGATIVE); PROTEIN, URINE AUTO NEGATIVE (NEGATIVE); RBC, URINE AUTO 1 /HPF (0-3); SPECIFIC GRAVITY URINE AUTO 1.019 (1.002-1.035); SQUAMOUS EPITHELIAL CELL UR AU 0 /HPF (0-6); UROBILINOGEN, URINE AUTO 0.2 mg/dL (0.0-2.0); WBC, URINE AUTO 0 /HPF (0-3)
[2023-08-13 16:52] LABS: BASO # 0.1 10^3/uL (0.0-0.2); EOS # 0.2 10^3/uL (0.0-0.5); EOS % 3.1 % (0.0-3.0); HEMATOCRIT 43.5 % (42.0-52.0); HEMOGLOBIN 14.2 g/dl (13.5-17.5); LYMPH # 0.9 10^3/uL (1.5-5.0); MEAN CORPUSCULAR HEMOGLOBIN 31.9 pg (27.0-33.0); MEAN CORPUSCULAR HGB CONC 32.6 g/dl (32.0-36.5); MEAN CORPUSCULAR VOLUME 97.8 fl (80.0-96.0); MONO # 0.7 10^3/uL (0.0-0.8); MONO % 11.3 % (2.0-8.0); NEUTROPHILS # 3.9 10^3/uL (1.5-8.5); NEUTROPHILS % 68.4 % (36.0-66.0); PLATELET COUNT, AUTOMATED 100 10^3/uL (150-450); RED BLOOD COUNT 4.45 10^6/uL (4.30-6.10); WHITE BLOOD COUNT 5.8 10^3/uL (4.0-10.0)
[2023-08-13 16:59] LABS: CALCIUM LEVEL 8.7 MG/DL (8.3-10.6); CREATININE FOR GFR 1.54 MG/DL (0.70-1.30); GLOMERULAR FILTRATION RATE 46.5 (>35); POTASSIUM SERUM 4.1 MMOL/L (3.5-5.1)
== END ==
LOC: M PLALAB 13:56
PROVIDERS: ATTEND Urology
DX: N40.1 Benign prostatic hyperplasia with lower urinary tract symptoms (principal)

== ENCOUNTER → 2023-12-17 | Outpatient (CLI) | payer MEDICARE, OTHER ==
[~2023-12-17] MED LIST changes: +LABE300T28 PO; -LABE300T55 PO
[2023-12-17 15:51] LABS: HEMATOCRIT 43.9 % (42.0-52.0); HEMOGLOBIN 14.3 g/dl (13.5-17.5); MEAN CORPUSCULAR HEMOGLOBIN 31.9 pg (27.0-33.0); MEAN CORPUSCULAR HGB CONC 32.6 g/dl (32.0-36.5); RED BLOOD COUNT 4.48 10^6/uL (4.30-6.10)
[2023-12-17 15:53] LABS: ALBUMIN 3.5 G/DL (3.2-5.2); ALKALINE PHOSPHATASE 85 U/L (46-116); ALT/SGPT 22 U/L (7.0-40); AST/SGOT 25 U/L (<34); BILIRUBIN,TOTAL 0.5 MG/DL (0.3-1.2); BLOOD UREA NITROGEN 34 MG/DL (9-23); CALCIUM LEVEL 8.7 MG/DL (8.3-10.6); CARBON DIOXIDE LEVEL 29 MMOL/L (20-31); CHLORIDE LEVEL 108 MMOL/L (98-107); CHOLESTEROL LEVEL 198 MG/DL (<200); CHOLESTEROL RISK RATIO 4.39 (<5); CREATININE FOR GFR 1.23 MG/DL (0.70-1.30); GLOMERULAR FILTRATION RATE > 60.0 (>35); GLUCOSE, FASTING 85 MG/DL (74-106); HDL CHOLESTEROL 45.1 MG/DL (>40); LDL CHOLESTEROL 136.3 MG/DL (<100); NON-HDL-C 152.9 MG/DL; POTASSIUM SERUM 4.5 MMOL/L (3.5-5.1); SODIUM LEVEL 141 MMOL/L (136-145); TOTAL PROTEIN 6.2 G/DL (5.7-8.2); TRIGLYCERIDES LEVEL 83 MG/DL (<150)
[2023-12-17 16:05] LABS: PLATELET COUNT, AUTOMATED 63 10^3/uL (150-450)
== END ==
LOC: M PLALAB 11:42
PROVIDERS: ATTEND Physician Assistant
DX: I11.9 Hypertensive heart disease without heart failure (principal); I25.10 Atherosclerotic heart disease of native coronary artery without angina pectoris; E78.00 Pure hypercholesterolemia, unspecified; I49.3 Ventricular premature depolarization

== ENCOUNTER → 2024-05-09 | Outpatient (CLI) | payer MEDICARE, OTHER ==
[2024-05-09 16:26] LABS: ALBUMIN 3.6 G/DL (3.2-5.2); BILIRUBIN,TOTAL 0.7 MG/DL (0.3-1.2); CALCIUM LEVEL 8.8 MG/DL (8.3-10.6); CREATININE FOR GFR 1.69 MG/DL (0.70-1.30); GLOMERULAR FILTRATION RATE 41.7 (>35); THYROID STIMULATING HORMONE 3.11 uIU/ML (0.55-4.78); TOTAL PROTEIN 6.1 G/DL (5.7-8.2)
== END ==
LOC: M PLALAB 11:53
PROVIDERS: ATTEND Physician Assistant
DX: I49.3 Ventricular premature depolarization (principal); I11.9 Hypertensive heart disease without heart failure; E78.00 Pure hypercholesterolemia, unspecified

== ENCOUNTER → 2024-06-08 | Outpatient (CLI) | payer MEDICARE, OTHER ==
[2024-06-08 15:26] LABS: CALCIUM LEVEL 8.9 MG/DL (8.3-10.6); CREATININE FOR GFR 1.43 MG/DL (0.70-1.30); GLOMERULAR FILTRATION RATE 50.5 (>35); POTASSIUM SERUM 4.2 MMOL/L (3.5-5.1)
== END ==
LOC: M PLALAB 13:03
PROVIDERS: ATTEND Physician Assistant
DX: I11.9 Hypertensive heart disease without heart failure (principal)

== ENCOUNTER → 2024-07-07 | Outpatient (REF) | payer MEDICARE, OTHER | LOC: M LAB REF 16:39 | PROVIDERS: ATTEND Ophthalmology | DX: D23.112 Other benign neoplasm of skin of right lower eyelid, including canthus (principal) ==

== ENCOUNTER → 2024-07-08 | Outpatient (CLI) | payer MEDICARE, OTHER ==
[2024-07-08 17:40] LABS: BASO # 0.1 10^3/uL (0.0-0.2); BASO % 0.8 % (0.0-1.0); EOS # 0.1 10^3/uL (0.0-0.5); HEMATOCRIT 40.6 % (42.0-52.0); HEMOGLOBIN 13.4 g/dl (13.5-17.5); LYMPH % 15.5 % (24.0-44.0); MEAN CORPUSCULAR HEMOGLOBIN 31.8 pg (27.0-33.0); MEAN CORPUSCULAR VOLUME 96.2 fl (80.0-96.0); MONO # 0.8 10^3/uL (0.0-0.8); MONO % 12.6 % (2.0-8.0); NEUTROPHILS # 4.2 10^3/uL (1.5-8.5); NEUTROPHILS % 68.8 % (36.0-66.0); PLATELET COUNT, AUTOMATED 114 10^3/uL (150-450); RED BLOOD COUNT 4.22 10^6/uL (4.30-6.10); WHITE BLOOD COUNT 6.1 10^3/uL (4.0-10.0)
[2024-07-08 17:46] LABS: ERYTHROCYTE SEDIMENTATION RATE 9 mm/hr (0-20)
== END ==
LOC: M PLALAB 15:40
PROVIDERS: ATTEND Ophthalmology
DX: H16.223 Keratoconjunctivitis sicca, not specified as Sjogren's, bilateral (principal)

== ENCOUNTER → 2024-09-01 | Outpatient (CLI) | payer MEDICARE, OTHER ==
[2024-09-01 15:37] LABS: BILIRUBIN,TOTAL 0.5 MG/DL (0.3-1.2); CALCIUM LEVEL 9.4 MG/DL (8.3-10.6); CHOLESTEROL RISK RATIO 5.03 (<5); CREATININE FOR GFR 1.31 MG/DL (0.70-1.30); GLOMERULAR FILTRATION RATE 55.9 (>35); HDL CHOLESTEROL 29.2 MG/DL (>40); LDL CHOLESTEROL 97.6 MG/DL (<100); MAGNESIUM LEVEL 1.8 MG/DL (1.8-2.4); NON-HDL-C 117.8 MG/DL; POTASSIUM SERUM 3.9 MMOL/L (3.5-5.1); TOTAL PROTEIN 5.8 G/DL (5.7-8.2)
[2024-09-01 15:40] LABS: THYROID STIMULATING HORMONE 0.011 uIU/ML (0.55-4.78)
== END ==
LOC: M PLALAB 13:19
PROVIDERS: ATTEND Physician Assistant
DX: I11.9 Hypertensive heart disease without heart failure (principal); I25.10 Atherosclerotic heart disease of native coronary artery without angina pectoris; I49.3 Ventricular premature depolarization; E78.00 Pure hypercholesterolemia, unspecified

== ENCOUNTER → 2024-10-05 | Outpatient (CLI) | payer MEDICARE, OTHER ==
[~2024-10-05] MED LIST changes: -TADA5TAB; +TADA5TAB94
== END ==
LOC: M PLALAB 13:20
PROVIDERS: ATTEND Physician Assistant
DX: E05.90 Thyrotoxicosis, unspecified without thyrotoxic crisis or storm (principal); I49.3 Ventricular premature depolarization

== ENCOUNTER → 2024-10-10 | Outpatient (CLI) | payer MEDICARE, OTHER | LOC: M RAD 13:42 | PROVIDERS: ATTEND Family Medicine | DX: M17.11 Unilateral primary osteoarthritis, right knee (principal); M25.561 Pain in right knee ==

== ENCOUNTER → 2024-10-10 | Outpatient (CLI) | payer MEDICARE, OTHER | LOC: M RAD 13:01 | PROVIDERS: ATTEND Family Medicine | DX: E04.1 Nontoxic single thyroid nodule (principal); M17.11 Unilateral primary osteoarthritis, right knee; M25.561 Pain in right knee ==

== ENCOUNTER → 2024-11-08 | Outpatient (CLI) | payer MEDICARE, OTHER ==
[2024-11-08 15:22] LABS: THYROID PEROXIDASE ANTIBODY < 28.0 U/ML (<60.0); THYROID STIMULATING HORMONE < 0.010 uIU/ML (0.55-4.78); TOTAL T3 151.2 NG/DL (60.0-181.0)
[2024-11-08 15:23] LABS: FREE T4 1.85 NG/DL (0.89-1.76)
== END ==
LOC: M PLALAB 12:03
PROVIDERS: ATTEND Nurse Practitioner Family
DX: E06.4 Drug-induced thyroiditis (principal)

== ENCOUNTER → 2024-11-18 | Day surgery (SDC) | payer MEDICARE, OTHER ==
[~2024-11-18] VITALS: Ht 177.8 cm; Wt 75.6 kg
[~2024-11-18] MED LIST changes: +ATOR40TA75 PO; +CALCIUM CHLORIDE 10% 1 GM/10 ML SYR As Ordered ONE; +CHLO25TA PO; -CLOP75TA2; +CLOP75TA2 PO; +ETOMIDATE INJ 20MG/10ML VIAL As Ordered ONE; +HOME MED LIST COMPLETE! XX SCH; +LIDOCAINE 2% 100MG/5ML SDV (FOR ANES.) As Ordered ONE; -METO1TAB32; +METO1TAB32 PO; +ONDANSETRON 4MG 2ML VIAL As Ordered ONE; +ROCURONIUM BROMIDE 50MG/5ML VIAL As Ordered ONE; +ROPI1TAB73 PO; +SUCCINYLCHOLINE 100MG/5ML SYRINGE As Ordered ONE; -TADA5TAB94; +TADA5TAB94 PO; +ZOLP10TA2 PO; +fentaNYL 100 MCG/2 ML INJECTION As Ordered ONE; +propofoL 200 MG/20 ML VIAL As Ordered ONE
[2024-11-18] MEDS: GLUCAGON INJ 1MG VIAL IV STA (17:19)
[2024-11-18 18:39] LABS: BASO # 0.1 10^3/uL (0.0-0.2); BASO % 0.4 % (0.0-1.0); EOS % 0.2 % (0.0-3.0); HEMATOCRIT 42.2 % (42.0-52.0); HEMOGLOBIN 13.8 g/dl (13.5-17.5); LYMPH # 0.9 10^3/uL (1.5-5.0); LYMPH % 5.8 % (24.0-44.0); MEAN CORPUSCULAR HEMOGLOBIN 30.3 pg (27.0-33.0); MEAN CORPUSCULAR HGB CONC 32.7 g/dl (32.0-36.5); MEAN CORPUSCULAR VOLUME 92.7 fl (80.0-96.0); MONO # 0.8 10^3/uL (0.0-0.8); MONO % 5.5 % (2.0-8.0); NEUTROPHILS # 13.2 10^3/uL (1.5-8.5); NEUTROPHILS % 87.6 % (36.0-66.0); PLATELET COUNT, AUTOMATED 159 10^3/uL (150-450); RED BLOOD COUNT 4.55 10^6/uL (4.30-6.10); WHITE BLOOD COUNT 15.1 10^3/uL (4.0-10.0)
[2024-11-18 18:50] LABS: CALCIUM LEVEL 9.6 MG/DL (8.3-10.6); CREATININE FOR GFR 1.27 MG/DL (0.70-1.30); GLOMERULAR FILTRATION RATE 57.8 (>35)
[2024-11-18 20:00] VITALS: BP 148/70; TEMP 98.8; O2SAT 95
== END | disposition home or self-care (01) ==
LOC: M ED 16:25 → M SDC 18:26
PROVIDERS: ATTEND Internal Medicine Gastroenterology
DX: T18.128A Food in esophagus causing other injury, initial encounter (principal); K20.80 Other esophagitis without bleeding; W44.F3XA Food entering into or through a natural orifice, initial encounter; Z79.899 Other long term (current) drug therapy; I10 Essential (primary) hypertension; E78.5 Hyperlipidemia, unspecified
CPT/HCPCS: 43239; 43247; 71045; 80048; 85025; 86850; 86900; 86901; 88305; 94760; 99284; J0330; J1100; J1610; J2405; J3010

== ENCOUNTER → 2024-12-20 | Outpatient (CLI) | payer MEDICARE, OTHER ==
[~2024-12-20] MED LIST changes: -CALCIUM CHLORIDE 10% 1 GM/10 ML SYR As Ordered ONE; -ETOMIDATE INJ 20MG/10ML VIAL As Ordered ONE; -HOME MED LIST COMPLETE! XX SCH; -LIDOCAINE 2% 100MG/5ML SDV (FOR ANES.) As Ordered ONE; -ONDANSETRON 4MG 2ML VIAL As Ordered ONE; -ROCURONIUM BROMIDE 50MG/5ML VIAL As Ordered ONE; -SUCCINYLCHOLINE 100MG/5ML SYRINGE As Ordered ONE; -fentaNYL 100 MCG/2 ML INJECTION As Ordered ONE; -propofoL 200 MG/20 ML VIAL As Ordered ONE
[2024-12-20 15:21] LABS: THYROID STIMULATING HORMONE 3.778 uIU/ML (0.55-4.78)
[2024-12-20 16:04] LABS: FREE T4 0.86 NG/DL (0.89-1.76)
== END ==
LOC: M PLALAB 11:02
PROVIDERS: ATTEND Nurse Practitioner Family
DX: E05.00 Thyrotoxicosis with diffuse goiter without thyrotoxic crisis or storm (principal)

== ENCOUNTER → 2025-09-04 | Outpatient (CLI) | payer MEDICARE, OTHER ==
[~2025-09-04] MED LIST changes: -AMIO200T49; +AMIO200T54; +GABA-1171 PO; +TADA5TAB2 PO; -TADA5TAB94 PO; +ZOLP10TA11 PO; -ZOLP10TA2 PO; -ZOLP5TAB; +ZOLP5TAB9
[2025-09-04 19:00] LABS: ALT/SGPT 29.0 U/L (7.0-40); AST/SGOT 29.0 U/L (<34); CALCIUM LEVEL 9.2 MG/DL (8.3-10.6); CARBON DIOXIDE LEVEL 30.0 MMOL/L (20-31); CHLORIDE LEVEL 104.0 MMOL/L (98-107); CHOLESTEROL LEVEL 161.0 MG/DL (<200); CHOLESTEROL RISK RATIO 3.49 (<5); CREATININE FOR GFR 1.27 MG/DL (0.70-1.30); GLOMERULAR FILTRATION RATE 56.4 (>35); LDL CHOLESTEROL 88.7 MG/DL (<100); MAGNESIUM LEVEL 1.7 MG/DL (1.8-2.4); NON-HDL-C 114.9 MG/DL; PLATELET COUNT, AUTOMATED 116 10^3/uL (150-450); POTASSIUM SERUM 3.7 MMOL/L (3.5-5.1); SODIUM LEVEL 142.0 MMOL/L (136-145); TRIGLYCERIDES LEVEL 131.0 MG/DL (<150)
== END ==
LOC: M PLALAB 14:44
PROVIDERS: ATTEND Physician Assistant
DX: I25.10 Atherosclerotic heart disease of native coronary artery without angina pectoris (principal); E78.00 Pure hypercholesterolemia, unspecified; I49.3 Ventricular premature depolarization